=== PATIENT | male | born 1930 | race Caucasian/White ===

== ENCOUNTER 2017-11-04 00:50 | Observation (INO) ==
[2017-11-04] MEDS ORDERED: Nitroglycerin 0.4 MG TAB.SUBL SL ONE (00:58)
--- NOTE | 2017-11-04 01:01 | Emergency Department Note ---
Disposition Clinical Impression: Lung nodule Chest pain Qualifiers: Chest pain type: unspecified Qualified Code(s): R07.9 - Chest pain, unspecified Disposition: Admitted As Inpatient Condition: Fair Referrals: Tiffanie Ascencio CNP [Primary Care Provider] - Forms: ED Satisfaction Letter Time of Disposition: 01:52 Chest Pain HPI - General Chief Complaint: ED Chest Pain Stated Complaint: chest pain Time Seen by Provider: 11/04/17 00:55 Source: patient, EMS Limitations: no limitations Vital Signs Reviewed: Yes Nursing Notes Reviewed: Yes - History of Present Illness HPI Narrative: 87-year-old male history of hypertension CAD status post stents 3, CHF, presents complaining of chest pain shortness of breath that happened prior to arrival, the patient states that he had chest pain at home was an 8 out of 10 and took one nitroglycerin did not change the pain secondary the second nitroglycerin brought the pain down to 5 out of 10, is currently with 5 out of 10 pain denies hemoptysis unilateral leg swelling or history of blood clot. Patient does take aspirin and Plavix. But denies anticoagulation. Denies recent fever chills or productive cough Pt complaint: chest pain Onset (ago): hour(s) Duration: intermittent Pain Location: substernal Severity: moderate Severity scale (1-10): 5 Pain Radiation: none Improves with: nothing Worsens with: nothing Associated symptoms: Reports: nausea. Denies: vomiting, diaphoresis, dyspnea, sense of impending doom - Related Data Home Medications Medication Instructions Recorded Confirmed Aspirin [Lo-Dose Aspirin EC] 81 mg PO DAILY 07/13/17 10/31/17 Atenolol [Tenormin] 6.25 mg PO DAILY 07/13/17 10/31/17 Clopidogrel [Plavix] 75 mg PO DAILY 07/13/17 10/31/17 Multivitamin [Multivitamins] 1 each PO DAILY 07/13/17 10/31/17 Nitroglycerin [Nitrostat] 0.4 mg SL Q5M PRN 07/13/17 10/31/17 Vitamin E (Dl,Tocopheryl Acet) 400 unit PO DAILY 07/13/17 10/31/17 [Vitamin E] Previous Rx's Medication Instructions Recorded Furosemide [Lasix] 20 mg PO DAILY #30 tablet 11/01/17 Allergies Allergy/AdvReac Type Severity Reaction Status Date / Time [id number]-Xcz-Bze Reductase AdvReac Weakness Verified 07/13/17 09:30 Inhibitor [Statins] All systems ED: reviewed and negative except as stated. Review of Systems: As Per HPI Constitutional: Denies: fever Eyes: Denies: eye pain, eye discharge ENT ED: Denies: ear pain Cardiovascular: Reports: as per HPI, chest pain, dyspnea on exertion Respiratory: Reports: as per HPI, dyspnea Gastrointestinal: Denies: abdominal pain, nausea Genitourinary: Denies: urgency Musculoskeletal: Denies: back pain Integumentary: Denies: rash, abrasion Neurological: Denies: headache Psychiatric: Denies: anxiety Endocrine: Denies: fatigue Chest Pain PMH - Past Medical History Medical history: Reports: CHF, coronary artery disease, GERD, hyperlipidemia, hypertension, myocardial infarction Surgical history: Reports: angioplasty/stent, appendectomy Psychiatric history: Reports: no psych history - Social History Smoking Status: Former smoker Alcohol use: Reports: none Drug use: Reports: none Physical Exam Constitutional: Elderly male clutching his chest vital signs are stable sinus bradycardia Neck: normal inspection, neck is supple, no JVD Resp: normal chest inspection, CTA bilaterally, no resp distress, no wheezes/ rales/rhonchi CV: Bradycardia, no murmurs/gallops/rubs, S1 and S2 heard Extremity: +2 bilateral radial and posterial tibial pulses, no pedal edema GI: normal inspection, Soft, NTND, no peritoneal signs, no palpable abdominal aortic aneurysm Back: normal inspection, no tenderness to palpation Neuro: A&O3, no gross motor or sensory deficits bilaterally MSK: normal inspection, bilateral UE and LE with normal ROM Skin: No rashes, skin warm, dry, intact - General Limitations: no limitations General appearance: alert, in no apparent distress Course Course Narrative: 87-year-old male with concerns for ACS given chest pain arrests has gotten another nitroglycerin here still having 5 out of 10 chest pain we will start a nitroglycerin drip CBC BMP basic lab work, he has a EKG that shows bradycardia patient will likely be admission to hospital service - Reevaluation(s) Reevaluation #1: Patient continues to have 3-10 chest pain or nitroglycerin drip, plan is for admission to Hospital hospitalist paged at this time. Time: 01:48 Reevaluation #2: Admitted to Dr Jayna, hospitalist recommends no heparinization at the time of admission. Time: 01:52 Vital Signs Temperature 97.5 F L 11/04/17 00:50 Pulse Rate 59 11/04/17 00:50 Respiratory Rate 22 11/04/17 00:50 Blood Pressure 120/70 11/04/17 00:50 O2 Sat by Pulse Oximetry 100 11/04/17 00:50 Temperature 97.5 F L 11/04/17 00:50 Pulse Rate 51 11/04/17 01:43 Respiratory Rate 18 11/04/17 01:43 Blood Pressure 125/63 11/04/17 01:43 O2 Sat by Pulse Oximetry 95 11/04/17 01:43 Oxygen Delivery Oxygen Delivery Room Air Chest Pain - Differential Diagnosis Likely: stable angina, unstable angina pectoris, atypical chest pain, chest pain - Medical Records Medical records reviewed: Yes I reviewed the patient's medical records. - Lab Data Lab results reviewed: Yes I reviewed the patient's lab results. Result diagrams: 11/04/17 01:13 11/04/17 01:13 Lab Results 11/04/17 11/04/17 11/04/17 Range/Units 01:13 01:13 01:13 WBC 6.2 (4.3-11.1) K/mcL RBC 4.03 L (4.19-5.50) M/mcL Hgb 12.6 L (12.9-16.9) g/dL Hct 38.5 (37.5-50.1) % MCV 95.5 (83.0-100.0) fL MCH 31.3 (28.0-33.3) pg MCHC 32.7 (31.6-35.5) g/dL RDW 11.9 (11.5-14.5) % Plt Count 223 (140-400) K/mcL MPV 9.0 L (9.4-12.4) fL Immature Gran % 0.8 (0-4) % Seg Neutrophils % 59.5 % Lymphocytes % 20.3 % Monocytes % 16.4 % Eosinophils % 2.4 % Basophils % 0.6 % Neutrophils # 3.7 (1.6-8.9) K/mcL Lymphocytes # 1.3 (0.6-4.6) K/mcL Monocytes # 1.0 (0.0-1.3) K/mcL Eosinophils # 0.2 (0.0-0.6) K/mcL Basophils # 0.0 (0.0-0.2) K/mcL PT 10.8 (9.4-12.1) Seconds INR 1.0 APTT 26.8 (26.0-36.0) Seconds Sodium 136 (136-145) mEq/L Potassium 4.5 (3.5-5.1) mEq/L Chloride 103 (98-107) mEq/L Carbon Dioxide 25 (23-29) mEq/L BUN 50 H (8-23) mg/dL Creatinine 1.93 H (0.70-1.30) mg/dL Est GFR ( Amer) 40 L (> 60) Est GFR (Non-Af Amer) 33 L (> 60) BUN/Creatinine Ratio 26 (6-26) Glucose 104 (70-105) mg/dL Calculated Osmolality 296 (280-300) Calcium 9.3 (8.6-10.3) mg/dL Troponin I (< 0.04) ng/mL 11/04/17 Range/Units 01:13 WBC (4.3-11.1) K/mcL RBC (4.19-5.50) M/mcL Hgb (12.9-16.9) g/dL Hct (37.5-50.1) % MCV (83.0-100.0) fL MCH (28.0-33.3) pg MCHC (31.6-35.5) g/dL RDW (11.5-14.5) % Plt Count (140-400) K/mcL MPV (9.4-12.4) fL Immature Gran % (0-4) % Seg Neutrophils % % Lymphocytes % % Monocytes % % Eosinophils % % Basophils % % Neutrophils # (1.6-8.9) K/mcL Lymphocytes # (0.6-4.6) K/mcL Monocytes # (0.0-1.3) K/mcL Eosinophils # (0.0-0.6) K/mcL Basophils # (0.0-0.2) K/mcL PT (9.4-12.1) Seconds INR APTT (26.0-36.0) Seconds Sodium (136-145) mEq/L Potassium (3.5-5.1) mEq/L Chloride (98-107) mEq/L Carbon Dioxide (23-29) mEq/L BUN (8-23) mg/dL Creatinine (0.70-1.30) mg/dL Est GFR ( Amer) (> 60) Est GFR (Non-Af Amer) (> 60) BUN/Creatinine Ratio (6-26) Glucose (70-105) mg/dL Calculated Osmolality (280-300) Calcium (8.6-10.3) mg/dL Troponin I < 0.03 (< 0.04) ng/mL - Radiology Data Radiology results reviewed: Yes I reviewed the patient's radiology results. - EKG Data EKG attestation: Yes I reviewed and interpreted this EKG. EKG shows normal: sinus rhythm Rate: bradycardia (58 bpm QTc 424 bradycardia appears to be sinus no acute ischemic changes) Heart Score - Score History: Highly Suspicious EKG: Non Specific repolarisation Disturbance Age: Greater than 65 Risk Factors: Equal/Greater than 3 risk factor or history of atherosclerotic disease Troponin: Less than normal limit HEART Score Total: 7 Critical Care Time Critical Care Time: Yes Total Critical Care Time: 35 Attestation: Critical care performed: Time is exclusive of separately billable procedures. Time includes: direct patient care, patient reassessment, coordination of patient care, interpretation of data (laboratory data, radiology data, and respiratory data), review of patient's medical records, medical consultation and documentation of patient care. Procedures included in critical care time: Procedures excluded from critical care time: Attestation Statement - Attestation Attestation: I, Prudencio Servin MD, personally evaluated this patient and discussed their management with the resident physician. I reviewed the resident's note and agree with the documented findings, medical decision making, and plan of care. 87-year-old male with known coronary artery disease and coronary artery stents presents to the emergency department with a complaint of pain in the back of his neck and in the upper chest which started about one hour prior to arrival. Shortness of breath with the pain. He took nitroglycerin at home with some improvement. He was given 4 baby aspirin and another nitroglycerin per EMS with improvement. He still has pain. He rated the pain at 8 out of 10 at worst. On arrival here he rates pain a 4 out of 10. Here in the emergency department he received an additional nitroglycerin and was placed on a nitroglycerin infusion. Pain continued to improve down to 3 out of 10. On examination patient is a well-developed well-nourished well-appearing elderly male in no acute distress. He is alert and oriented. There is no cyanosis or diaphoresis. He does appear somewhat anxious and reluctant to move. Chest is nontender to palpation. Breath sounds are clear and equal bilaterally. Heart regular rate and rhythm. Abdomen soft and nontender with normal bowel sounds. EKG shows a supraventricular bradycardia with a ventricular rate of 58. No acute ST segment elevation or depression and no significant change from prior EKG. No acute abnormality on chest x-ray. Labs reviewed. Troponin normal. The hospitalist, Dr. Dorantes, was consulted and accepted admission of the patient.
[2017-11-04 01:21] LABS: Basophils % 0.6 %; Eosinophils # 0.2 K/mcL (0.0-0.6); Eosinophils % 2.4 %; Hematocrit 38.5 % (37.5-50.1); Hemoglobin 12.6 g/dL (12.9-16.9); Immature Granulocytes % 0.8 % (0-4); Lymphocytes # 1.3 K/mcL (0.6-4.6); Lymphocytes % 20.3 %; Mean Corpuscular HGB Conc 32.7 g/dL (31.6-35.5); Mean Corpuscular Hemoglobin 31.3 pg (28.0-33.3); Mean Corpuscular Volume 95.5 fL (83.0-100.0); Monocytes % 16.4 %; Neutrophils # 3.7 K/mcL (1.6-8.9); Platelet Count 223 K/mcL (140-400); Red Blood Count 4.03 M/mcL (4.19-5.50); Red Cell Distribution Width 11.9 % (11.5-14.5); Segmented Neutrophils % 59.5 %
[2017-11-04 01:27] LABS: Prothrombin Time 10.8 Seconds (9.4-12.1)
[2017-11-04 01:30] LABS: Activated Partial Thrombo Time 26.8 Seconds (26.0-36.0)
[2017-11-04] MEDS ORDERED: Nitroglycerin 25 MG/250 ML INFUS..BTL IVC SCH (01:30)
[2017-11-04 01:41] LABS: Calcium 9.3 mg/dL (8.6-10.3); Potassium 4.5 mEq/L (3.5-5.1)
[2017-11-04] MEDS ORDERED: *HR* HYDROcodone/Acet 5/325 mg TABLET PO PRN (03:13)
[2017-11-04] MEDS ORDERED: Naloxone 0.4 MG/ML INJ IVP PRN (03:13)
[2017-11-04] MEDS ORDERED: Nitroglycerin 0.4 MG TAB.SUBL SL PRN (03:17)
--- NOTE | 2017-11-04 03:23 | Internal Med History&Physical ---
Date of Encounter: 11/04/17 Time of Encounter: 02:30 Assessment and Plan (1) DVT prophylaxis Current visit: Yes Status: Acute Heparin subcutaneously (2) CAD (coronary artery disease) Current visit: No Status: Chronic Patient has known CAD S/P stent and PTCA. Last [facility] in Jul 2017, still have non- stented stenosis. Recommend aggressive medical management. Continue aspirin, Plavix, and atenolol. Patient is allergic to statin. Qualifiers: Coronary Disease-Associated Artery/Lesion type: [place] artery [place] vs. transplanted heart: [place] heart Associated angina: with unstable angina Qualified Code(s): I25.110 - Atherosclerotic heart disease of [place] coronary artery with unstable angina pectoris (3) S/P PTCA (percutaneous transluminal coronary angioplasty) Current visit: No Status: Acute (4) Chest pain Current visit: Yes Status: Acute Patient has typical chest pain with left arm radiation. Has history of CAD. Respond to NTG. Need to rule out ACS. - Continue cardiac monitoring. - Continue NTG drip at this point. - Track 3 sets of troponin - Patient has a recent echo 3 days ago. - We will consult cardiology for further management and optimize medications. Qualifiers: Chest pain type: precordial pain Qualified Code(s): R07.2 - Precordial pain (5) Congestive heart failure Current visit: No Status: Acute Appears euvolemic at this point. Continue Lasix by mouth daily Qualifiers: Heart failure type: diastolic Heart failure chronicity: acute Qualified Code(s): I50.31 - Acute diastolic (congestive) heart failure (6) CKD (chronic kidney disease) stage 3, GFR 30-59 ml/min Current visit: No Status: Chronic Creatinine is at around baseline (7) Lung nodule Current visit: Yes Status: Acute Patient was found lung nodule on chest x-ray. We will check CT chest in a.m. Internal Medicine - H&P: HPI Chief complaint: Chest pain Admitted From: Home Plans for Post Hospital Care: Home History of present illness: Mr. Matthews is a 87 year old male with history of CAD S/P stent, CKD, presented to ER for chest pain. Patient said chest pain started 12:15 AM, wake patient up from sleep. Chest pain located on left side chest, ache like, 5 out of 10, radiated to left arm and the left neck. Patient has shortness of breath. He has no nausea or diaphoresis. In emergency room, he was given NTG sublingual followed by NTG drip. His chest pain get down to 2 out of 10 after treatment. Patient was admitted to rule out ACS. Past Med Surg Social Fam HX - Past Medical History Medical history: CHF, coronary artery disease, GERD, hyperlipidemia, hypertension, myocardial infarction Psychiatric history: no psych history - Past Surgical History Surgical History: angioplasty/stent, appendectomy - Social History Smoking Status: Former smoker Smokeless Tobacco Status: No Alcohol use: none Drug use: none - Family History Mother History Unknown: Yes Living Status: Internal Medicine - H&P: Meds Aspirin [Lo-Dose Aspirin EC] 81 mg PO DAILY 07/13/17 [History] Atenolol [Tenormin] 6.25 mg PO DAILY 07/13/17 [History] Clopidogrel [Plavix] 75 mg PO DAILY 07/13/17 [History] Multivitamin [Multivitamins] 1 each PO DAILY 07/13/17 [History] Nitroglycerin [Nitrostat] 0.4 mg SL Q5M PRN 07/13/17 [History] Vitamin E (Dl,Tocopheryl Acet) [Vitamin E] 400 unit PO DAILY 07/13/17 [History] Furosemide [Lasix] 20 mg PO DAILY #30 tablet 11/01/17 [Rx] 3 Allergy/AdvReac Type Severity Reaction Status Date / Time Kvbyhwm-Ame-Vom Reductase AdvReac Weakness Verified 07/13/17 09:30 Inhibitor [Statins] All Systems PM: A 10-system review of systems was performed and is negative for pertinent findings except as documented above in the HPI. - Constitutional Vitals: Temp Pulse Resp BP Pulse Ox 97.7 F 52 17 123/62 98 11/04/17 03:00 11/04/17 03:00 11/04/17 03:00 11/04/17 03:00 11/04/17 03:00 General appearance: Present: A&O X 3, no acute distress, answers questions appropriately - Head Head exam: Present: atraumatic, normocephalic - Eye Eye exam: Present: PERRL, conjuntiva pink, sclera anicteric Pupils: Present: PERRL - Neck Neck exam general surgery: Present: supple, trachea midline. Absent: lymphadenopathy - Respiratory Respiratory exam: Present: CTAB. Absent: accessory muscle use, rales, rhonchi, wheezes - Cardiovascular Cardiovascular exam: Present: RRR, +S1, +S2. Absent: diastolic murmur, gallop, rubs, systolic murmur - GI/Abdominal GI/Abdominal exam: Present: normal bowel sounds, soft, no peritoneal signs. Absent: distended, tenderness - Extremities Exam Extremities exam: Present: warm, radial pulses palpable and symmetrical. Absent : calf tenderness, cyanotic, pedal edema - Neurological Exam Neurological exam: Present: CN II-XII intact, oriented X3, no focal deficits. Absent: pronater drift, facial droop, speech deficit - Skin Skin exam: Present: dry, intact Internal Med - H&P Results - Labs CBC & Chem 7: 11/04/17 01:13 11/04/17 01:13 - EKG Data -: EKG Interpreted by Myself (Supraventricular rhythm) Rate: bradycardia - EKG Data Prior EKG available for review: yes When compared to previous EKG: there is no significant change Interpretation IM: normal EKG
[2017-11-04 04:35] LABS: Eosinophils % 1.8 %; Hematocrit 35.7 % (37.5-50.1); Hemoglobin 11.7 g/dL (12.9-16.9); Lymphocytes % 14.2 %; Mean Corpuscular HGB Conc 32.8 g/dL (31.6-35.5); Mean Corpuscular Hemoglobin 31.5 pg (28.0-33.3); Monocytes % 15.2 %; Platelet Count 198 K/mcL (140-400); Red Blood Count 3.72 M/mcL (4.19-5.50); Red Cell Distribution Width 12.1 % (11.5-14.5); Segmented Neutrophils % 67.1 %
[2017-11-04 04:36] LABS: Basophils % 0.7 %; Eosinophils # 0.1 K/mcL (0.0-0.6); Lymphocytes # 0.9 K/mcL (0.6-4.6); Monocytes # 0.9 K/mcL (0.0-1.3)
[2017-11-04 04:48] LABS: Potassium 4.4 mEq/L (3.5-5.1)
[2017-11-04] MEDS: *HR* Heparin 5,000 UNIT/ML VIAL SQ SCH ×2 (06:00→20:04)
[2017-11-04] MEDS: Acetaminophen 325 MG TABLET PO PRN ×2 (06:05→22:47)
[2017-11-04] MEDS ORDERED: Furosemide 20 MG TABLET PO SCH (09:00)
--- NOTE | 2017-11-04 09:44 | Internal Med Progress Note ---
Date of Encounter: 11/04/17 Time of Encounter: 09:44 - Assessment and plan (1) Chest pain Current Visit: Yes Status: Acute Assessment and plan: Patient has typical chest pain with left arm radiation. Has history of CAD. Respond to NTG. Need to rule out ACS. - Troponin negative x3 - Continue cardiac monitoring. - Continue NTG drip at this point. - Patient has a recent echo 3 days ago. - Consult cardiology for further management and optimize medications. Qualifiers: Chest pain type: precordial pain Qualified Code(s): R07.2 - Precordial pain (2) Lung nodule Current Visit: Yes Status: Acute Assessment and plan: CT chest pending. (3) Bradycardia Current Visit: No Status: Acute Assessment and plan: Currently on tele monitoring he is running 50s. He currently does not have any complaints of pain. Will monitor and hold atenolol (4) Congestive heart failure Current Visit: No Status: Acute Assessment and plan: Appears euvolemic at this point. Continue Lasix by mouth daily Qualifiers: Heart failure type: diastolic Heart failure chronicity: acute Qualified Code(s): I50.31 - Acute diastolic (congestive) heart failure (5) S/P PTCA (percutaneous transluminal coronary angioplasty) Current Visit: No Status: Acute (6) CAD (coronary artery disease) Current Visit: No Status: Chronic Assessment and plan: Patient has known CAD S/P stent and PTCA. Last C in Jul 2017, still have non- stented stenosis. Recommend aggressive medical management. Continue aspirin, Plavix, and atenolol. Patient is allergic to statin. Qualifiers: Coronary Disease-Associated Artery/Lesion type: [place] artery [place] vs. transplanted heart: [place] heart Associated angina: with unspecified angina Qualified Code(s): I25.119 - Atherosclerotic heart disease of [place] coronary artery with unspecified angina pectoris (7) CKD (chronic kidney disease) stage 3, GFR 30-59 ml/min Current Visit: No Status: Chronic Assessment and plan: GFR 34 - at baseline (8) DVT prophylaxis Current Visit: Yes Status: Acute Assessment and plan: Heparin 5,000 units SQ BID - Subjective Interval history: Patient states left arm/chest pain improved with nitro drip, but now having headache side effects. He denies shortness of breath, nausea/vomiting, fevers/ chills, palpitations - Constitutional Vitals: Temp Pulse Resp BP Pulse Ox 98 F 50 16 143/63 100 11/04/17 08:34 11/04/17 08:34 11/04/17 08:34 11/04/17 08:34 11/04/17 08:34 General appearance: Present: A&O X 3, no acute distress, answers questions appropriately Exam: - Head Head exam: Present: atraumatic, normocephalic - Eye Eye exam: Present: PERRL, conjuntiva pink, sclera anicteric Pupils: Present: PERRL - Neck Neck exam general surgery: Present: supple, trachea midline. Absent: lymphadenopathy - Respiratory Respiratory exam: Present: CTAB. Absent: accessory muscle use, rales, rhonchi, wheezes - Cardiovascular Cardiovascular exam: Present: RRR, +S1, +S2. Absent: diastolic murmur, gallop, rubs, systolic murmur - GI/Abdominal GI/Abdominal exam: Present: normal bowel sounds, soft, no peritoneal signs. Absent: distended, tenderness - Extremities Exam Extremities exam: Present: warm, radial pulses palpable and symmetrical. Absent : calf tenderness, cyanotic, pedal edema - Neurological Exam Neurological exam: Present: CN II-XII intact, oriented X3, no focal deficits. Absent: pronater drift, facial droop, speech deficit - Skin Skin exam: Present: dry, intact Internal Medicine: Result - Labs CBC & Chem 7: 11/04/17 03:51 11/04/17 03:51 Labs: Short CBC 11/04/17 Range/Units 03:51 WBC 6.0 (4.3-11.1) K/mcL Hgb 11.7 L (12.9-16.9) g/dL Hct 35.7 L (37.5-50.1) % Plt Count 198 (140-400) K/mcL Neutrophils # 4.0 (1.6-8.9) K/mcL BMP 11/04/17 03:51 Sodium 136 Potassium 4.4 Chloride 103 Carbon Dioxide 25 BUN 50 H Creatinine 1.87 H Glucose 100 Calcium 9.0 Cardiac Enzymes 11/04/17 Range/Units 03:51 Troponin I < 0.03 (< 0.04) ng/mL - ABG Interpretation ABG results: PT/INR, D-dimer PT 10.8 Seconds (9.4-12.1) 11/04/17 01:13 - Impressions Impressions Chest CT 11/04/17 09:00 IMPRESSION: 1. No nodule was identified to correlate with recent chest x-ray findings. There is an incidental 2 mm noncalcified nodule in the right upper lobe which is identified. This can be followed per Fleischner society guidelines. 2. Subpleural reticulations are noted in the lung bases bilaterally and may reflect early fibrotic changes. 3. No other acute cardiopulmonary findings. RECOMMENDATIONS: Fleischner Society guidelines for follow-up and management of incidentally detected pulmonary nodules: Single Solid Nodule: Nodule size less than 6 mm In a low-risk patient, no routine follow-up. In a high-risk patient, optional CT at 12 months. Nodule size equals 6-8 mm In a low-risk patient, CT at 6-12 months, then consider CT at 18-24 months. In a high-risk patient, CT at 6-12 months, then CT at 18-24 months. Nodule size greater than 8 mm In a low-risk patient, consider CT, PET/CT, or tissue sampling at 3 months. In a high-risk patient, consider CT, PET/CT, or tissue sampling at 3 months. - Low risk patients include individuals with minimal or absent history of smoking and other known risk factors. - High risk patients include individuals with a history or smoking or known risk factors. Radiology 2017 http://pubs.rsna.org/doi/full/[email or web address] D/ / 11/04/2017 09:15:06 Zara Thao MD / peggy Interpreting Provider: Zara Thao MD Consult Discharge Plan - Plan Referrals: Tiffanie Ascencio, NISHANT [Primary Care Provider] -
[2017-11-04] MEDS: Aspirin Enteric Coated 81 MG Tablet PO SCH (12:27)
[2017-11-04] MEDS ORDERED: Nitroglycerin 0.2 MG PATCH.TD24 TD SCH (13:01)
[2017-11-04] MEDS: Multivit/Ca/Min/Fe/FA 1 TAB TABLET PO SCH (13:45)
[2017-11-04] MEDS: Furosemide 40 MG TABLET PO SCH (13:53)
--- NOTE | 2017-11-04 14:57 | Cardiology Consult Note ---
<Chrissy Iyer - Last Filed: 11/04/17 15:04> Date of Encounter: 11/04/17 Time of Encounter: 14:00 Assessment and Plan (1) CAD (coronary artery disease) Current Visit: No Status: Chronic Per cardiology: -Known CAD. -Last [facility] 07/2017 with 30% left main, 40% proximal LAD, 90% ostial/proximal circumflex, 40% ramus, 30% proximal RCA, 99% instent restenosis mid RCA with balloon angioplasty with final stenosis of 0%, 30% distal RCA, 99% RPL small vessel. -On asa, plavix, imdur, was on beta mariely in outpateint setting. NOw being held due to bradycardai. Not on statin due to allergy. -Admtted left arm and left neck pain, Relieved with nitro drip. -TTE 10/2017 with LVEF preserved, no segmental wall motion abnormalities. -ECG with no acute ischemic changes. -Troponins negative x3. -Denies current pain. -On asa, plavix, BB. NOt on statin due to allergy. -With remaining circumflex lesion, plan for stress in am. -NPO after midnight. -Of note, will need nitro patch discontinued at 0001 11/05/17 for stress in am. Qualifiers: Coronary Disease-Associated Artery/Lesion type: [place] artery [place] vs. transplanted heart: [place] heart Associated angina: with unspecified angina Qualified Code(s): I25.119 - Atherosclerotic heart disease of [place] coronary artery with unspecified angina pectoris Discussion w patient/family: The assessment and plan as outlined above was discussed with the patient and/or family members who expressed understanding and agreement. All questions were answered. Thank you for involving us in the care of your patient. Please call with any questions. Discussed and reviewed with . History of Present Illness Consult date: 11/04/17 Requesting physician: Ariella Chua Consult reason: chest pain Chief complaint: left arm and left neck pain History of present illness: Mr. Matthews is a 87 year old male with a relevant past medical history of CAD s/p PCI, HTN, GERD, CHF. Patient presented to [facility] with complaints left neck and left arm pain. Patient reports pain woke up him from sleeping. Denies aggravating factors. Patient reports pain was relieved after nitro drip in ER. Denies current chest pain. Denies shortness of breath. Past Med Surg Social Fam HX - Past Medical History Attestation: Yes The following information was validated with the patient. Source: patient, old records reviewed Medical history: CHF, coronary artery disease, GERD, hyperlipidemia, hypertension, myocardial infarction Psychiatric history: no psych history - Past Surgical History Surgical History: angioplasty/stent, appendectomy - Social History Smoking Status: Former smoker Smokeless Tobacco Status: No Alcohol use: none Drug use: none - Family History Mother History Unknown: Yes Living Status: Medications and Allergies Aspirin [Lo-Dose Aspirin EC] 81 mg PO DAILY 07/13/17 [History] Atenolol [Tenormin] 6.25 mg PO DAILY 07/13/17 [History] Clopidogrel [Plavix] 75 mg PO DAILY 07/13/17 [History] Multivitamin [Multivitamins] 1 each PO DAILY 07/13/17 [History] Nitroglycerin [Nitrostat] 0.4 mg SL Q5M PRN 07/13/17 [History] Vitamin E (Dl,Tocopheryl Acet) [Vitamin E] 400 unit PO DAILY 07/13/17 [History] Furosemide [Lasix] 20 mg PO DAILY #30 tablet 11/01/17 [Rx] 3 Allergy/AdvReac Type Severity Reaction Status Date / Time [id number] Reductase AdvReac Weakness Verified 07/13/17 09:30 Inhibitor [Statins] All Systems Review: The remainder of the systems were reviewed and are negative - Cardiovascular Cardiovascular: as per HPI, radiating jaw, neck or arm pain Physical Examination Vital Signs, Last 4 Hours Temp Pulse Resp BP Pulse Ox 11/04/17 12:37 134/67 11/04/17 11:05 97.9 F 49 16 135/62 98 11/04/17 11:00 150/67 General: Conversant, No Apparent Distress HEENT: Atraumatic, Normocephaly, Mucus Membranes Moist Neck: No JVD, Normal carotid pulses Cardiac: Reg Rate and Rhythm, Normal S1 and S2, No Murmur Lungs: Normal Breath Sounds, No Wheeze, Rales, Rhonchi Neuro: Alert and responsive, No focal deficits noted Abdomen: Soft, Non-Tender Skin: No rashes noted on visualized skin Musculoskeletal: No Chest Wall Tenderness Extremities: No Clubbing, No Cyanosis, No Edema, Normal Pulses Results 11/04/17 03:51 11/04/17 03:51 Lab Results Impressions Chest X-Ray 11/04/17 00:58 IMPRESSION: No evidence of acute cardiopulmonary disease. Questionable nodule in the right lung. Consider further evaluation with CT imaging. D/ / Mark Gustafson MD / Mark Gustafson MD Interpreting Provider: Mark Gustafson MD Chest CT 11/04/17 09:00 IMPRESSION: 1. No nodule was identified to correlate with recent chest x-ray findings. There is an incidental 2 mm noncalcified nodule in the right upper lobe which is identified. This can be followed per Fleischner society guidelines. 2. Subpleural reticulations are noted in the lung bases bilaterally and may reflect early fibrotic changes. 3. No other acute cardiopulmonary findings. RECOMMENDATIONS: Fleischner Society guidelines for follow-up and management of incidentally detected pulmonary nodules: Single Solid Nodule: Nodule size less than 6 mm In a low-risk patient, no routine follow-up. In a high-risk patient, optional CT at 12 months. Nodule size equals 6-8 mm In a low-risk patient, CT at 6-12 months, then consider CT at 18-24 months. In a high-risk patient, CT at 6-12 months, then CT at 18-24 months. Nodule size greater than 8 mm In a low-risk patient, consider CT, PET/CT, or tissue sampling at 3 months. In a high-risk patient, consider CT, PET/CT, or tissue sampling at 3 months. - Low risk patients include individuals with minimal or absent history of smoking and other known risk factors. - High risk patients include individuals with a history or smoking or known risk factors. Radiology 2017 http://pubs.rsna.org/doi/full/10.1148/radiol.6324204294 D/ / 11/04/2017 09:15:06 Zara Thao MD / peggy Interpreting Provider: Zara Thao MD Active Medications Acetaminophen (Tylenol) 650 mg PO Q6HR PRN PRN Reason: Mild Pain/Fever Stop: 05/06/18 03:14 Last Admin: 11/04/17 06:05 Dose: 650 mg Hydrocodone Bitart/Acetaminophen ([place] 5-325 Mg) 1 tab PO Q6HR PRN PRN Reason: Moderate Pain Stop: 05/06/18 03:14 Last Admin: 11/04/17 10:10 Dose: 1 tab Aspirin (Aspirin Ec) 81 mg PO DAILY MARIAM Stop: 05/06/18 09:01 Last Admin: 11/04/17 12:27 Dose: 81 mg Atenolol (Tenormin) 6.25 mg PO DAILY MARIAM Stop: 05/06/18 09:01 Last Admin: 11/04/17 12:28 Dose: Not Given Clopidogrel Bisulfate (Plavix) 75 mg PO DAILY MARIAM Stop: 05/06/18 09:01 Last Admin: 11/04/17 12:27 Dose: 75 mg Furosemide (Lasix) 20 mg PO DAILY MARIAM Stop: 05/06/18 09:01 Last Admin: 11/04/17 13:53 Dose: 20 mg Heparin Sodium (Porcine) (Heparin) 5,000 unit SQ Q12HCO MARIAM Stop: 05/06/18 06:01 Last Admin: 11/04/17 06:00 Dose: 5,000 unit Hydralazine HCl (Hydralazine) 10 mg IVP Q6HR PRN PRN Reason: SEE COMMENTS Stop: 05/06/18 12:42 Nitroglycerin (Nitroglycerin Premix 25 Mg/250 Ml) 25 mg in 250 mls @ 3 mls/hr IVC .Q24H MARIAM; 5 MCG/MIN PRN Reason: Protocol Stop: 05/06/18 01:31 Last Titration: 11/04/17 11:24 Dose: 0 mcg/min, 0 mls/hr Multivitamins/Calcium (Thera M Plus) 1 tab PO DAILY MARIAM Stop: 05/06/18 09:01 Last Admin: 11/04/17 13:45 Dose: 1 tab Naloxone HCl (Narcan) 0.4 mg IVP Q2MIN PRN PRN Reason: SEE COMMENTS Stop: 05/06/18 03:14 Nitroglycerin (Nitroglycerin) 0.4 mg SL Q5M PRN PRN Reason: Chest Pain Stop: 05/06/18 03:18 Nitroglycerin (Nitroglycerin) 0.2 mg TD 0730 [facility] Stop: 05/06/18 13:02 Last Admin: 11/04/17 13:44 Dose: 0.2 mg Vitamin E (Vitamin E) 400 unit PO DAILY MARIAM Stop: 05/06/18 09:01 Last Admin: 11/04/17 13:44 Dose: 400 unit Laboratory Tests 11/04/17 11/04/17 11/04/17 01:13 01:13 01:13 Hgb 12.6 L Creatinine 1.93 H Troponin I < 0.03 11/04/17 11/04/17 03:51 10:49 Hgb Creatinine Troponin I < 0.03 < 0.03 - Imaging and Cardiology Chest Xray: report reviewed Echo: report reviewed Cardiac cath: report reviewed - EKG Interpretation EKG results cardiology: personally reviewed (ECG with sinus bradycardia.), other (Telemetry with SB.) Consult Discharge Plan - Plan Referrals: Sonu,Tiffanie Green [employer] [Primary Care Provider] - <Shavon Connelly - Last Filed: 11/04/17 15:33> Date of Encounter: 11/04/17 - Attending Attestation 87 YOM presents with chest pain similiar to when he had his previous PTCA of the mid RCA 07/2017. ECHO is 55% with negative trops. Will proceed with a NST for further risk stratification. Assessment and Plan Discussion w patient/family: The assessment and plan as outlined above was discussed with the patient and/or family members who expressed understanding and agreement. All questions were answered. Thank you for involving us in the care of your patient. Please call with any questions. History of Present Illness History of present illness: Mr. Matthews is a 87 year old male All Systems Review: The remainder of the systems were reviewed and are negative Physical Examination Vital Signs, Last 4 Hours BP 11/04/17 12:37 134/67 Results 11/04/17 03:51 11/04/17 03:51 Lab Results 11/04/17 11/04/17 11/04/17 03:51 03:51 03:51 WBC 6.0 Hgb 11.7 L Hct 35.7 L Plt Count 198 Sodium 136 Potassium 4.4 Chloride 103 Carbon Dioxide 25 BUN 50 H Creatinine 1.87 H Glucose 100 Calcium 9.0 Troponin I < 0.03 11/04/17 10:49 WBC Hgb Hct Plt Count Sodium Potassium Chloride Carbon Dioxide BUN Creatinine Glucose Calcium Troponin I < 0.03
[2017-11-05] MEDS: *HR* Heparin 5,000 UNIT/ML VIAL SQ SCH ×2 (06:03→18:18)
[2017-11-05] MEDS ORDERED: Regadenoson 0.4 MG/5 ML SYRINGE IVP ONE (06:21)
[2017-11-05 10:33] LABS: Hematocrit 40.4 % (37.5-50.1); Hemoglobin 13.2 g/dL (12.9-16.9); Mean Corpuscular HGB Conc 32.7 g/dL (31.6-35.5); Mean Corpuscular Hemoglobin 31.4 pg (28.0-33.3); Platelet Count 210 K/mcL (140-400); Red Blood Count 4.21 M/mcL (4.19-5.50); Red Cell Distribution Width 12.1 % (11.5-14.5)
[2017-11-05] MEDS: Aspirin Enteric Coated 81 MG Tablet PO SCH (10:34)
[2017-11-05] MEDS: Furosemide 40 MG TABLET PO SCH (10:34)
[2017-11-05] MEDS: Multivit/Ca/Min/Fe/FA 1 TAB TABLET PO SCH (10:34)
[2017-11-05 10:58] LABS: Calcium 9.4 mg/dL (8.6-10.3); Potassium 4.7 mEq/L (3.5-5.1)
--- NOTE | 2017-11-05 12:20 | Event Note ---
Date of Encounter: 11/05/17 Time of Encounter: 12:16 - Cardiology Event Note Stress test this am abnormal. Discussed and reviewed with patient and family. Recommend LHC. Patient and family requesting to speak with , security supervisor. spoke with pateint and family. RIsks versus benefits of LHC explained to patient and family. All questions answered. Patient and family agreeable to proceed with LHC. Creatinine 1.74, about patient 's baseline, states ok to proceed with LHC. Further recommendations pending LHC.
[2017-11-05] MEDS ORDERED: ISOVUE-370 200 ML INFUS..BTL IV ONE (12:50)
[2017-11-05] MEDS ORDERED: *HR* Heparin 10,000 UNIT/10 ML VIAL ONE (12:50)
[2017-11-05] MEDS ORDERED: 0.9 % Sodium Chloride 1,000 ML ONE ×2 (12:50→13:38)
[2017-11-05] MEDS ORDERED: Heparin 1,000 UNITS/500 mL 500 ML ONE (12:50)
[2017-11-05] MEDS ORDERED: *HR* Midazolam HCl 2 MG/2 ML VIAL ONE (13:42)
[2017-11-05] MEDS ORDERED: Nitroglycerin 1,000 MCG/10 ML VIAL IV ONE (13:43)
--- NOTE | 2017-11-05 13:52 | Pre-Sedation Evaluation ---
Pre-sedation evaluation - Pre-sedation checklist Date of procedure: 11/05/17 Procedure: heart catherterization Recent Vitals: Last Vital Signs Temp 97.9 F 11/05/17 11:27 Pulse 98 11/05/17 11:27 Resp 18 11/05/17 11:27 BP 136/65 11/05/17 11:27 Pulse Ox 99 11/05/17 11:27 H&P (including ROS) documented in medical record: Yes Previous reaction to sedatives/anesthetics: No Dietary Status: NPO after Midnight Airway Assessment: Patient can open mouth completely, TMJ function normal Dentition: dentures removed Possible difficult airway: No ASA Classification *see protocol: CLASS III-Severe systemic disease Plan of Care: Pt appropriate candidate for procedure/moderate/conscious sedation , Risks/benefits of procedure/sedation discussed w/ patient/family, If not NPO; Risk of intake outweiged by necessity to perform procedure
[2017-11-05] MEDS ORDERED: *HR* Bivalirudin 250 MG VIAL IVC ONE (15:01)
--- NOTE | 2017-11-05 16:25 | Invasive Diagnostic Lab Proc ---
Name: Foster Matthews Date of Study: 11/05/2017 Date: 1930 Ht: 68.1in Medical Record#: [id number] Age: 87 Wt: 152.12lb Gender: Male BSA: 1.82 Order #: [id number] BMI: 23.05 Physicians Procedure Physician: J Luis Waldron DO Referring MD: Referring MD: Staff Name Position Time In Homer Chavez RT (R) Scrub 01:33 PM Petra Orlando RT (R) Monitor 01:33 PM Ismael Alva RN Hydropulper 01:33 PM Indications Indication Abnormal Test - Stress Procedures Performed Procedure L HRT ARTERY/VENTRICLE ANGIO PRQ CARD BM STENT W/ANGIO 1 VSL Pre-Procedure Checklist Pt not NPO for procedure and MD aware. Blood Pressure: 136/65 Plan of Care Patient will tolerate the procedure without complications. Adequate level of comfort will be maintained. Hemodynamics will remain stable Patient will recover from procedure without complications. Respiratory function will be maintained. Cardiac rhythm will remain stable. Patient temperature will be maintained. Patient and/or family have verbalized understanding of the procedure. Patient Education Chief Complaint/Reason for Test: Cardiac Cath Developmental Category: Geriatric (65+ years) Developmentally Appropriate for Age: Yes Learning Barriers: None Education Needs: Procedure Education Method: Verbal Information Taught: Cardiac Cath Educational Evaluation: Able to repeat information Intravenous Access Time IV Size Location DC'd Fluid/Drip Rate Units RN 12:46 PM 20g 1 /" Patent On Arrival Rt Antecubital Allergies Siwhply-Iwr-Ruo Reductase Inhibitor Vital Signs Time BP (mmHg) HR (bpm) O2 Sat. RR (bpm) LOC 12:46 PM 136 / 65 98 99 % 18 5 = Fully awake and oriented or at pre-proc level 01:53 PM / % 4 = Oriented but drowsy 03:13 PM 173 / 75 61 99 % 16 5 = Fully awake and oriented or at pre-proc level 01:46 PM 161 / 74 60 98 % 20 01:51 PM 143 / 73 61 100 % 20 01:56 PM 122 / 70 61 100 % 18 02:00 PM 135 / 75 62 100 % 16 02:06 PM 140 / 67 61 100 % 17 02:11 PM 148 / 71 64 100 % 21 02:16 PM 140 / 73 63 100 % 18 02:21 PM 132 / 67 56 100 % 18 02:27 PM 163 / 72 56 100 % 16 02:31 PM 161 / 79 59 100 % 13 02:36 PM 159 / 79 60 99 % 23 02:41 PM 149 / 77 60 98 % 18 02:46 PM 150 / 73 60 100 % 11 02:51 PM 162 / 79 61 100 % 16 03:21 PM 145 / 77 59 99 % 14 03:30 PM 149 / 76 62 92 % 14 5 = Fully awake and oriented or at pre-proc level 03:44 PM 143 / 70 61 97 % 16 5 = Fully awake and oriented or at pre-proc level 04:00 PM 145 / 77 60 98 % 16 5 = Fully awake and oriented or at pre-proc level Procedural Medications Time Medication Dose Units Method Given By 01:47 PM Oxygen 2 L/min nasal cannula Ismael Alva RN 01:47 PM Versed 1 mg Intravenous Ismael Alva RN 01:59 PM Lidocaine 2% 10 ml Subcutaneous J Luis Waldron DO 02:11 PM Angiomax 0.75mg/kg bolus: 10.5 ml Intravenous Ismael Alva RN 02:11 PM Angiomax 1.75mg/kg/hr: 24.5 ml/hr Intravenous Ismael Alva RN 02:54 PM Angiomax 1.75mg/kg/hr: ml Dc'd Ismael Alva RN ASA Classification: CLASS II- Mild systemic disease (i.e. well-controlled diabetes, hypertension, asthma, cigarette smoking) Seth Score Preprocedure Postprocedure Activity 2- Moves 4 extremities sustained head lift Activity Circulation 2- SBP +/= 20 points of pre-anesthetic level Circulation Consciousness 2- Awake and alert oriented x 3 Consciousness O2 Saturation 2- Able to maintain O2 satruation of 92% on room air O2 Saturation Respiratory 2- Able to deep breathe and cough well Respiratory Total Score 10 Total Score Contrast Agent: Isovue Diagnostic Contrast: 100 ml Total Contrast: 100 ml Fluoro Dose: 1120 mGy Procedure Log Time Note Enter By 12:57 PM CathStat 01:25 PM Pt to the holding area, family at bedside. Pt comfortable, no complaints of pain. dspellman 01:25 PM Patient charges- Angio tray pack, Navilyst 3mm J, Pulse Oximetry and ACIST tubing and transducer dspellman 01:25 PM IV Supplies used: J loop Angio Cath. dspellman 01:33 PM Homer Chavez RT (R) Position: Scrub Time in: ::33 PM Petra Orlando RT (R) Position: Monitor Time in: ::33 PM Ismael Alva RN Position: Hydropulper Time in: 13:33 01:45 PM Vitals capture started with the following parameters, Patient=Adult, Interval=5 min, Initial Exutqwph=073 mmHg, Deflation Rate=3 mmHg, Cuff placed on Right Arm :46 PM Case Start :46 PM Physician arrived 13::46 PM Meet and greet completed :46 PM Sign in performed according to hospital policy. :46 PM Procedure start 13:46 PM Pressure channel 2 zeroed. :46 PM HR=60 bpm, JTRC=068/74 mmhg, SpO2=98.0 %, Resp=20 B/min, Comment=NSR :47 PM Hair removed from procedure site in procedure lab using clippers. Bilateral groin prepped with Chloraprep by Petra Orlando RT (R), then patient was draped. Skin intact. :47 PM Time: 13:47 Oxygen on at 2 L/min per nasal cannula by Ismael Alva RN :47 PM Time: 13:47 Versed 1 mg Intravenous Given by Ismael Alva RN :51 PM HR=61 bpm, OGWJ=147/73 mmhg, XpW6=936.0 %, Resp=20 B/min, Comment=NSR :51 PM ASA Class CLASS II- Mild systemic disease (i.e. well-controlled diabetes, hypertension, asthma, cigarette smoking) :53 PM Time: 13:53 Patient comfortable and pain free: Yes :53 PM Time: 13:53LOC: 4 = Oriented but drowsy :54 PM Clinical Presentation: Unstable angina dsp:56 PM HR=61 bpm, OYSK=558/70 mmhg, TtG2=324.0 %, Resp=18 B/min, Comment=NSR :59 PM Time out performed according to hospital policy dspellman 01:59 PM Time: 13:59 10 ml Lidocaine 2% to right groin Subcutaneous Given by J Luis Waldron DO dspell:59 PM Unsuccessful access attempt # 1 into the right Femoral artery. Manual pressure applied to achieve hemostasis.. dspell 02:00 PM Micro-Introducer Kit utilized for sheath placement dspell 02:00 PM HR=62 bpm, YSWU=592/75 mmhg, AfO0=076.0 %, Resp=16 B/min, Comment=NSR 02:04 PM Access obtained by percutaneous puncture. 6Fr 10cm Terumo [place] sheath placed in right Femoral artery. [id number] ell:04 PM 0.035 180cm Amplatz Super Stiff wire [id number] ell 02:05 PM 6Fr FR 4 catheter inserted over the wire [facility] :05 PM Catheter selectively placed in left ventricle dspell 02:06 PM HR=61 bpm, SDKV=781/67 mmhg, FbM5=364.0 %, Resp=17 B/min, Comment=NSR 02:06 PM Recorded Pressure: LV, HR=63, Condition=Condition 1 (Left Ventricle) LV 143/0/3 02:06 PM Recorded Pressure: LV, Ao, HR=72, Condition=Condition 1 (Left Ventricle) LV 152/10/4, (Aorta) Ao 150/40/90 02:07 PM Bolus angiogram of left Ventricle complete: 12 ml/sec for a total of 12 mls dspell 02:07 PM RCA angiography performed in multiple views. dspell 02:07 PM Catheter removed dspell 02:07 PM 5Fr FL 4 catheter inserted over the wire [facility] dspell 02:08 PM LCA angiography performed in multiple views. dspell 02:08 PM Recorded Pressure: Ao, HR=62, Condition=Condition 1 (Aorta) Ao 137/54/83 02:09 PM Catheter removed dspell 02:10 PM Lesion found in Mid RCA. Pre Stenosis: 90 Pre LIZZETTE Flow: 3: Complete and Brisk Flow/Perfusion dspell 02:10 PM Right Coronary, Right Posterior Descending Arteries with Right Posterolateral and Acute Marginal branches with 90 % stenosis. If graft is supplying this area, 0 % stenosis dspell 02:10 PM PCI Status Urgent dspellman 02:10 PM PCI Indication: PCI for high risk Non-STEMI or unstable angina dspellman 02:10 PM PCI lesion in Mid RCA. dspell 02:10 PM 6Fr JR 4 Cordis guide catheter was used to cannulate the PCI vessel successfully. reused? No dspellman 02:11 PM HR=64 bpm, FNGZ=977/71 mmhg, HiT4=817.0 %, Resp=21 B/min, Comment=NSR 02:11 PM Time: 14:11 Angiomax 0.75mg/kg bolus: 10.5 ml Intravenous Given by Ismael Alva RN Blanco pump dspell 02:11 PM Recorded Pressure: Ao, HR=67, Condition=Condition 1 (Aorta) Ao 132/50/83 02:12 PM Time: 14:11 Angiomax 1.75mg/kg/hr: 24.5 ml/hr Intravenous Given by Ismael Alva RN Blanco pump dspell 02:13 PM Inflation device was opened. dspell 02:13 PM .014 ChoICE PT Extra Support 300cm guide wire across target lesion- successful. reused? No dspellman 02:13 PM 3.0 mm x 15mm NC Trek Rx balloon across target lesion-un successful. reused? No dspellman 02:16 PM HR=63 bpm, PGIU=063/73 mmhg, AxC6=990.0 %, Resp=18 B/min, Comment=NSR 02:16 PM Balloon catheter removed intact. dspell 02:17 PM 2.0 mm x 15 mm Emerge Monorail balloon across target lesion- successful. reused? No dspellman 02:18 PM Balloon inflated @ 14 brenda for 15 seconds dspellman 02:19 PM Balloon inflated @ 14 brenda for 17 seconds dspellman 02:19 PM Balloon inflated @ 14 brenda for 16 seconds dspellman 02:20 PM Balloon inflated @ 14 brenda for 15 seconds dspellman 02:20 PM Balloon inflated @ 14 brenda for 15 seconds dspellman 02:21 PM HR=56 bpm, NOAZ=093/67 mmhg, TiM0=023 %, Resp=18 B/min 02:21 PM Balloon inflated @ 14 brenda for 16 seconds dspellman 02:21 PM Balloon catheter removed intact. dspellman 02:21 PM 3.0 x 15 NC Trek balloon inserted over the wire. dspellman 02:24 PM Balloon inflated @ 16 brenda for 15 seconds dspellman 02:24 PM Balloon inflated @ 16 brenda for 13 seconds dspellman 02:25 PM Balloon inflated @ 16 brenda for 16 seconds dspellman 02:25 PM Balloon inflated @ 16 brenda for 15 seconds dspellman 02:26 PM Balloon inflated @ 16 brenda for 15 seconds dspellman 02:26 PM Recorded Pressure: Ao, HR=56, Condition=Condition 1 (Aorta) Ao 162/63/99 02:26 PM Balloon inflated @ 18 brenda for 16 seconds dspellman 02:27 PM Balloon catheter removed intact. dspellman 02:27 PM HR=56 bpm, TDEW=321/72 mmhg, ZdO1=589.0 %, Resp=16 B/min, Comment=NSR 02:28 PM 3.5 mm x 25mm NC Trek Rx balloon across target lesion- successful. reused? No dspellman 02:29 PM Balloon inflated @ 16 brenda for 16 seconds dspellman 02:30 PM Balloon inflated @ 18 brenda for 23 seconds dspellman 02:30 PM Balloon inflated @ 18 brenda for 16 seconds dspellman 02:31 PM HR=59 bpm, QIVX=351/79 mmhg, YwZ0=665.0 %, Resp=13 B/min, Comment=NSR 02:31 PM Guide wire removed intact. dspellman 02:31 PM Recorded Pressure: Ao, HR=56, Condition=Condition 1 (Aorta) Ao 168/59/101 02:32 PM Balloon catheter removed intact. dspellman 02:36 PM 3.5mm x 12mm Synergy drug-eluting stent across target lesion- successful Lot #[id number] dspellman 02:36 PM HR=60 bpm, ZBFG=062/79 mmhg, SpO2=99.0 %, Resp=23 B/min, Comment=NSR 02:36 PM Stent deployed @ 16 brenda for 17 seconds dspellman 02:37 PM Stent delivery system removed intact. dspellman 02:39 PM 3.5mm x 12mm Synergy drug-eluting stent across target lesion- successful Lot #[id number] dspellman 02:41 PM Stent deployed @ 8 brenda for 13 seconds dspellman 02:41 PM HR=60 bpm, KEFK=826/77 mmhg, SpO2=98.0 %, Resp=18 B/min, Comment=NSR 02:41 PM Stent delivery system removed intact. dspellman 02:42 PM 4.0 mm x 12mm NC Emerge balloon across target lesion- successful. reused? No dspell 02:43 PM Balloon inflated @ 14 brenda for 20 seconds dspellman 02:44 PM Balloon inflated @ 14 brenda for 12 seconds dspellman 02:44 PM Balloon inflated @ 15 brenda for 12 seconds dspellman 02:45 PM Balloon inflated @ 14 brenda for 11 seconds dspellman 02:45 PM Balloon catheter removed intact. dspell 02:46 PM HR=60 bpm, PUBC=280/73 mmhg, QeS8=211.0 %, Resp=11 B/min, Comment=NSR 02:46 PM Guide wire removed intact. dspell 02:46 PM Procedure completed at 14:46 dspell 02:46 PM Did you address LIZZETTE flow and Dominance? Yes dspell 02:51 PM HR=61 bpm, ZZWB=771/79 mmhg, CkP5=134.0 %, Resp=16 B/min, Comment=NSR 02:52 PM Sign out completed: Radiation Dose 1119.53 mGy Fluoro Time: 13.0 Isovue 370 - 200ml contrast 100 ml given by J Luis Waldron DO. Complications: NoneCardiac Rehab Consult needed: NoConfirmed administered medications: Yes dsp 02:52 PM Isovue 370 - 200ml,1 Bottle(s) used. dsp 02:53 PM Sheath left in place to be pulled on floor/holding areaV+Pad dspell 02:53 PM Estimated Blood Loss: minimal dspell 02:53 PM Post ECG NSR dspell 02:53 PM Post Blood Pressure 162/79 dspell 02:54 PM Time: 14:54 Angiomax 1.75mg/kg/hr: ml Dc'd Given by Ismael Alva RN Blanco pump dspell 02:56 PM Lesion found in Distal RCA. Pre Stenosis: 80 Pre LIZZETTE Flow: 3: Complete and Brisk Flow/Perfusion dspellman 03:03 PM Lesion found in Proximal Circumflex. Pre Stenosis: 80 Pre LIZZETTE Flow: 3: Complete and Brisk Flow/Perfusion dspellman 03:03 PM Lesion found in 1st Marginal. Pre Stenosis: 80 Pre LIZZETTE Flow: 3: Complete and Brisk Flow/Perfusion dspellman 03:14 PM Pt voided 200 CC kkallner 04:12 PM Delay to floor Bed availability kwitte 04:12 PM Complications: None kwitte 04:12 PM Report given to Delilah CANTU Pt taken to Holding room Room #2n4. 16:12 kwitte 04:17 PM Patient voided 200cc clear yellow urine per urinal. kwitte 04:17 PM Patient out of room: 16:17 kwitte Complications Complication None None Hemodynamics Pressures Site Systolic/A Wave Diastolic/V Wave Mean LV 143 0 3 LV 152 10 4 AO 150 40 90 AO 137 54 83 AO 132 50 83 AO 162 63 99 AO 168 59 101 Post Procedure Information Blood Pressure: 162/79 mmHg Rhythm: NSR Site Checks Time Location Status Staff Sheath In? Note 03:12 PM Rt Groin No bleeding/ No Hematoma Milton Obregon RN Yes 03:21 PM Rt Groin No bleeding/ No Hematoma Kallner, Savanna RT Yes 03:29 PM Rt Groin No bleeding/ No Hematoma Kallner, [place] RT Yes 03:43 PM Rt Groin No bleeding/ No Hematoma Kallner, [place] RT Yes 04:00 PM Rt Groin No bleeding/ No Hematoma Kallner, Savanna RT Yes Pulses Time Site Pre-Procedure Post-Procedure Note 11/05/2017 12:46:00 PM Bilateral DP & PT 2+ 11/05/2017 4:00:00 PM Bilateral DP & PT 2+ Updated by Milton Obregon RN on 11/05/2017 4:17:42 PM Milton Obregon RN electronically signed on 11/05/2017 4:18:07 PM with status of Final
[2017-11-05] MEDS: 0.9 % Sodium Chloride 1,000 ML IVC SCH (17:35)
--- NOTE | 2017-11-05 17:43 | Internal Med Progress Note ---
Date of Encounter: 11/06/17 Time of Encounter: 17:43 - Assessment and plan (1) Chest pain Current Visit: Yes Status: Acute Assessment and plan: Patient has typical chest pain with left arm radiation. Has history of CAD. Respond to NTG. Need to rule out ACS. - Troponin negative x3 - Continue cardiac monitoring. [facility] today, recommendations pending. Qualifiers: Chest pain type: precordial pain Qualified Code(s): R07.2 - Precordial pain (2) Lung nodule Current Visit: Yes Status: Acute Assessment and plan: CT chest done, will recommend follow-up with primary care physician. (3) Bradycardia Current Visit: No Status: Acute Assessment and plan: Currently on tele monitoring he is running 50s. He currently does not have any complaints of pain. Will monitor and hold atenolol (4) Congestive heart failure Current Visit: No Status: Acute Assessment and plan: Appears euvolemic at this point. Continue Lasix by mouth daily Qualifiers: Heart failure type: diastolic Heart failure chronicity: acute Qualified Code(s): I50.31 - Acute diastolic (congestive) heart failure (5) S/P PTCA (percutaneous transluminal coronary angioplasty) Current Visit: No Status: Acute (6) CAD (coronary artery disease) Current Visit: Yes Status: Chronic Assessment and plan: Patient has known CAD S/P stent and PTCA. Last [facility] in Jul 2017, still have non- stented stenosis. Recommend aggressive medical management. Continue aspirin, Plavix, and atenolol. Patient is allergic to statin. Qualifiers: Coronary Disease-Associated Artery/Lesion type: [place] artery [place] vs. transplanted heart: [place] heart Associated angina: without angina Qualified Code(s): I25.10 - Atherosclerotic heart disease of [place] coronary artery without angina pectoris (7) CKD (chronic kidney disease) stage 3, GFR 30-59 ml/min Current Visit: Yes Status: Chronic Assessment and plan: GFR 34 - at baseline (8) DVT prophylaxis Current Visit: Yes Status: Acute Assessment and plan: Heparin 5,000 units SQ BID - Subjective Interval history: Patient states left arm/chest pain improved with nitro drip, but now having headache side effects. He denies shortness of breath, nausea/vomiting, fevers/ chills, palpitations - Constitutional Vitals: Temp Pulse Resp BP Pulse Ox 97.9 F 58 16 153/78 96 03/02/18 16:36 11/05/17 16:57 11/05/17 16:57 11/05/17 16:57 11/05/17 16:57 General appearance: Present: A&O X 3, no acute distress, answers questions appropriately - Head Head exam: Present: atraumatic, normocephalic - Eye Eye exam: Present: PERRL, conjuntiva pink, sclera anicteric Pupils: Present: PERRL - Neck Neck exam general surgery: Present: supple, trachea midline. Absent: lymphadenopathy - Respiratory Respiratory exam: Present: CTAB. Absent: accessory muscle use, rales, rhonchi, wheezes - Cardiovascular Cardiovascular exam: Present: bradycardia, +S1, +S2. Absent: diastolic murmur, gallop, rubs, systolic murmur - GI/Abdominal GI/Abdominal exam: Present: normal bowel sounds, soft, no peritoneal signs. Absent: distended, tenderness - Extremities Exam Extremities exam: Present: warm, radial pulses palpable and symmetrical. Absent : calf tenderness, cyanotic, pedal edema - Neurological Exam Neurological exam: Present: CN II-XII intact, oriented X3, no focal deficits. Absent: pronater drift, facial droop, speech deficit - Skin Skin exam: Present: dry, intact Internal Medicine: Result - Labs CBC & Chem 7: 11/06/17 04:29 11/06/17 04:29 Labs: Short CBC 11/05/17 Range/Units 10:06 WBC 6.1 (4.3-11.1) K/mcL Hgb 13.2 D (12.9-16.9) g/dL Hct 40.4 (37.5-50.1) % Plt Count 210 (140-400) K/mcL BMP 11/05/17 10:06 Sodium 136 Potassium 4.7 Chloride 101 Carbon Dioxide 29 BUN 38 H Creatinine 1.74 H Glucose 97 Calcium 9.4 - ABG Interpretation ABG results: PT/INR, D-dimer PT 10.8 Seconds (9.4-12.1) 11/04/17 01:13 Consult Discharge Plan - Plan Referrals: [facility], Cardiology [Other] (office will call patient at home with follow up appointment) Tiffanie Ascencio CNP [Primary Care Provider] - 11/12/17 9:00 am
--- NOTE | 2017-11-05 20:38 | Electrocardiograph Report ---
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
--- NOTE | 2017-11-05 20:39 | Electrocardiograph Report ---
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
[2017-11-06] MEDS: 0.9 % Sodium Chloride 1,000 ML IVC SCH (04:23)
[2017-11-06 04:49] LABS: Basophils # 0.1 K/mcL (0.0-0.2); Basophils % 0.9 %; Eosinophils # 0.1 K/mcL (0.0-0.6); Eosinophils % 2.3 %; Hemoglobin 11.8 g/dL (12.9-16.9); Immature Granulocytes % 0.8 % (0-4); Lymphocytes # 0.8 K/mcL (0.6-4.6); Lymphocytes % 14.6 %; Mean Corpuscular HGB Conc 31.9 g/dL (31.6-35.5); Mean Corpuscular Hemoglobin 30.6 pg (28.0-33.3); Mean Corpuscular Volume 96.1 fL (83.0-100.0); Mean Platelet Volume 8.7 fL (9.4-12.4); Neutrophils # 3.4 K/mcL (1.6-8.9); Platelet Count 202 K/mcL (140-400); Red Blood Count 3.85 M/mcL (4.19-5.50); Segmented Neutrophils % 63.4 %
[2017-11-06 05:13] LABS: Calcium 8.8 mg/dL (8.6-10.3); Potassium 4.3 mEq/L (3.5-5.1)
[2017-11-06] MEDS: *HR* Heparin 5,000 UNIT/ML VIAL SQ SCH (05:51)
[2017-11-06] MEDS: Multivit/Ca/Min/Fe/FA 1 TAB TABLET PO SCH (07:56)
[2017-11-06] MEDS: Aspirin Enteric Coated 81 MG Tablet PO SCH (07:56)
--- NOTE | 2017-11-06 08:20 | Cardiology Progress Note ---
Date of Encounter: 11/06/17 Time of Encounter: 08:00 Assessment and Plan (1) CAD (coronary artery disease) Current Visit: Yes Status: Chronic Per cardiology: -Known CAD. -Last [facility] 07/2017 with 30% left main, 40% proximal LAD, 90% ostial/proximal circumflex, 40% ramus, 30% proximal RCA, 99% instent restenosis mid RCA with balloon angioplasty with final stenosis of 0%, 30% distal RCA, 99% RPL small vessel. -On asa, plavix, imdur, was on beta mariely in outpateint setting. . -Admtted left arm and left neck pain, Relieved with nitro drip. -TTE 10/2017 with LVEF preserved, no segmental wall motion abnormalities. -ECG with no acute ischemic changes. Troponins negative x3. Denies current pain. 11/05/17: abnormal nuclear stress--significant worsening of baseline abnormal ST/ T with regadenoson, medium sized, moderate intensity reversible inferolateral perfusion defect suggestive of ischemia. 11/05/17: C--s/p succesful PTCA/NAKUL of ISR of mid-distal RCA stenosis. Existing severe LCx stenosis. No chest pain overnight. Emphasis placed on the importance of uninterrupted DAPT (asa + plavix) for a minimum of 1 year--pt verbalized understanding. Continue betablocker. No statin d/t allergy,intolerance. Will coordinate outpt follow-up with Dr. Waldron for evaluation of staged procedure for LCx stenosis. Cardiology will sign-off, please call with questions. Qualifiers: Coronary Disease-Associated Artery/Lesion type: [place]all artery [place] vs. transplanted heart: marshall heart Associated angina: without angina Qualified Code(s): I25.10 - Atherosclerotic heart disease of marshall coronary artery without angina pectoris (2) CKD (chronic kidney disease) stage 3, GFR 30-59 ml/min Current Visit: Yes Status: Chronic Kidney function improved today. Stable s/p LHC. Continue to avoid nephrotoxins if able. Discussion w patient/family: The assessment and plan as outlined above was discussed with the patient and/or family members who expressed understanding and agreement. All questions were answered. Thank you for involving us in the care of your patient. Please call with any questions. The patient will be discussed and reviewed with Dr. Connelly; changes to be made accordingly. Cardiology will sign-off, will arrange outpatient follow-up. Subjective Principal diagnosis: Abnormal stress/unstable angina Interval history: Seen and examined. No recurrent chest pain or discomfort overnight. No issues with groin site. Findings of LHC discussed in detail with patient. No other new symptoms reported. Objective Vital Signs, Last 4 Hours Temp Pulse Resp BP Pulse Ox 11/06/17 08:02 80 11/06/17 07:24 97.8 F 52 16 151/63 99 General: Conversant, No Apparent Distress HEENT: Atraumatic, Normocephaly, Mucus Membranes Moist Neck: No JVD, Normal carotid pulses Cardiac: Reg Rate and Rhythm, Normal S1 and S2, No Murmur Lungs: Normal Breath Sounds, No Wheeze, Rales, Rhonchi Neuro: Alert and responsive, No focal deficits noted Abdomen: Soft, Non-Tender Skin: No rashes noted on visualized skin Musculoskeletal: No Chest Wall Tenderness Extremities: No Clubbing, No Cyanosis, No Edema, Normal Pulses Results 11/06/17 04:29 11/06/17 04:29 Lab Results 11/05/17 11/05/17 11/06/17 10:06 10:06 04:29 WBC 6.1 5.3 Hgb 13.2 D 11.8 L Hct 40.4 37.0 L Plt Count 210 202 Sodium 136 Potassium 4.7 Chloride 101 Carbon Dioxide 29 BUN 38 H Creatinine 1.74 H Glucose 97 Calcium 9.4 11/06/17 04:29 WBC Hgb Hct Plt Count Sodium 138 Potassium 4.3 Chloride 105 Carbon Dioxide 28 BUN 33 H Creatinine 1.54 H Glucose 95 Calcium 8.8 Active Medications Acetaminophen (Tylenol) 650 mg PO Q6HR PRN PRN Reason: Mild Pain/Fever Stop: 05/06/18 03:14 Last Admin: 11/04/17 22:47 Dose: 650 mg Hydrocodone Bitart/Acetaminophen ([place] 5-325 Mg) 1 tab PO Q6HR PRN PRN Reason: Moderate Pain Stop: 05/06/18 03:14 Last Admin: 11/04/17 10:10 Dose: 1 tab Aspirin (Aspirin Ec) 81 mg PO DAILY [facility] Stop: 05/06/18 09:01 Last Admin: 11/06/17 07:56 Dose: 81 mg Atenolol (Tenormin) 6.25 mg PO DAILY [facility] Stop: 05/06/18 09:01 Last Admin: 11/04/17 12:28 Dose: Not Given Clopidogrel Bisulfate (Plavix) 75 mg PO DAILY [facility] Stop: 05/06/18 09:01 Last Admin: 11/06/17 07:56 Dose: 75 mg Furosemide (Lasix) 20 mg PO DAILY [facility] Stop: 05/06/18 09:01 Last Admin: 11/05/17 10:34 Dose: 20 mg Heparin Sodium (Porcine) (Heparin) 5,000 unit SQ Q12HCO [facility] Stop: 05/06/18 06:01 Last Admin: 11/06/17 05:51 Dose: 5,000 unit Hydralazine HCl (Hydralazine) 10 mg IVP Q6HR PRN PRN Reason: SEE COMMENTS Stop: 05/06/18 12:42 Sodium Chloride (0.9 % Sodium Chloride) 1,000 mls @ 100 mls/hr IVC .Q10H [facility] Stop: 05/07/18 15:01 Last Admin: 11/06/17 04:23 Dose: 100 mls/hr Multivitamins/Calcium (Thera M Plus) 1 tab PO DAILY [facility] Stop: 05/06/18 09:01 Last Admin: 11/06/17 07:56 Dose: 1 tab Naloxone HCl (Narcan) 0.4 mg IVP Q2MIN PRN PRN Reason: SEE COMMENTS Stop: 05/06/18 03:14 Nitroglycerin (Nitroglycerin) 0.4 mg SL Q5M PRN PRN Reason: Chest Pain Stop: 05/06/18 03:18 Nitroglycerin (Nitroglycerin) 0.2 mg TD 0730 [facility] Stop: 05/06/18 13:02 Last Admin: 11/04/17 13:44 Dose: 0.2 mg Vitamin E (Vitamin E) 400 unit PO DAILY [facility] Stop: 05/06/18 09:01 Last Admin: 11/06/17 07:59 Dose: 400 unit - Imaging and Cardiology Echo: report reviewed Cardiac cath: report reviewed Other Results: 12 hour tele: avg HR=59 SB. No signifcant event noted. - EKG Interpretation EKG results cardiology: personally reviewed Consult Discharge Plan - Plan Referrals: [facility] [Other] (office will call patient at home with follow up appointment) Tiffanei Ascencio [employer] [Primary Care Provider] - 11/12/17 9:00 am
[2017-11-06 11:24] VITALS: BP 113/94
--- NOTE | 2017-11-06 13:15 | Internal Med Progress Note ---
Date of Encounter: 11/06/17 Time of Encounter: 13:15 - Assessment and plan (1) Chest pain Current Visit: Yes Status: Acute Qualifiers: Chest pain type: precordial pain Qualified Code(s): R07.2 - Precordial pain (2) Lung nodule Current Visit: Yes Status: Acute (3) Bradycardia Current Visit: No Status: Acute (4) Congestive heart failure Current Visit: No Status: Acute Qualifiers: Heart failure type: diastolic Heart failure chronicity: acute Qualified Code(s): I50.31 - Acute diastolic (congestive) heart failure (5) S/P PTCA (percutaneous transluminal coronary angioplasty) Current Visit: No Status: Acute (6) CAD (coronary artery disease) Current Visit: Yes Status: Chronic Qualifiers: Coronary Disease-Associated Artery/Lesion type: [place] artery [place] vs. transplanted heart: [place] heart Associated angina: without angina Qualified Code(s): I25.10 - Atherosclerotic heart disease of [place] coronary artery without angina pectoris (7) CKD (chronic kidney disease) stage 3, GFR 30-59 ml/min Current Visit: Yes Status: Chronic (8) DVT prophylaxis Current Visit: Yes Status: Acute - Subjective Interval history: Patient states left arm/chest pain improved with nitro drip, but now having headache side effects. He denies shortness of breath, nausea/vomiting, fevers/ chills, palpitations - Constitutional Vitals: Temp Pulse Resp BP Pulse Ox 98.0 F 68 18 113/94 96 11/06/17 11:19 11/06/17 11:19 11/06/17 11:19 11/06/17 11:19 11/06/17 11:19 General appearance: Present: A&O X 3, no acute distress, answers questions appropriately Internal Medicine: Result - Labs CBC & Chem 7: 11/06/17 04:29 11/06/17 04:29 Labs: Short CBC 11/06/17 Range/Units 04:29 WBC 5.3 (4.3-11.1) K/mcL Hgb 11.8 L (12.9-16.9) g/dL Hct 37.0 L (37.5-50.1) % Plt Count 202 (140-400) K/mcL Neutrophils # 3.4 (1.6-8.9) K/mcL BMP 11/06/17 04:29 Sodium 138 Potassium 4.3 Chloride 105 Carbon Dioxide 28 BUN 33 H Creatinine 1.54 H Glucose 95 Calcium 8.8 - ABG Interpretation ABG results: PT/INR, D-dimer PT 10.8 Seconds (9.4-12.1) 11/04/17 01:13 Consult Discharge Plan - Plan Referrals: [facility] [Other] (office will call patient at home with follow up appointment) Ascencio,Tiffanie Green CNP [Primary Care Provider] - 11/12/17 9:00 am
--- NOTE | 2017-11-06 13:24 | Discharge Summary ---
- NOTES TO OUTPATIENT PROVIDER Notes to Outpatient Provider: - Follow-up with lung nodeules seen on chest x- ray but not seen on CT of chest. - Follow-up heart rate: Atenolol was held on discharge because of bradycardia. Orders not resulted at time of discharge: Pending orders 11/05/17 05:50 NM shakeel perf SPECT multi [NM] Routine Date of Encounter: 11/06/17 Time of Encounter: 13:19 - Discharge Diagnosis (1) Chest pain Priority: Primary Status: Acute Qualifiers: Chest pain type: precordial pain Qualified Code(s): R07.2 - Precordial pain (2) Lung nodule Priority: Secondary Status: Acute (3) Bradycardia Priority: Secondary Status: Acute (4) Congestive heart failure Priority: Secondary Status: Acute Qualifiers: Heart failure type: diastolic Heart failure chronicity: acute Qualified Code(s): I50.31 - Acute diastolic (congestive) heart failure (5) S/P PTCA (percutaneous transluminal coronary angioplasty) Priority: Secondary Status: Acute (6) CAD (coronary artery disease) Priority: Secondary Status: Chronic Qualifiers: Coronary Disease-Associated Artery/Lesion type: [place] artery [place] vs. transplanted heart: [place] heart Associated angina: without angina Qualified Code(s): I25.10 - Atherosclerotic heart disease of [place] coronary artery without angina pectoris (7) CKD (chronic kidney disease) stage 3, GFR 30-59 ml/min Priority: Secondary Status: Chronic (8) DVT prophylaxis Priority: Secondary Status: Acute Hospital course: Mr. Matthews is a 87 year old male with history of CAD S/P stent, CKD, presented to ER for left arm pain and chest pain. Woke patient up from sleep. Chest pain located on left side chest, ache like, 5 out of 10, radiated to left arm and the left neck. Patient has shortness of breath. He has no nausea or diaphoresis. In emergency room, he was given NTG sublingual followed by NTG drip. His chest pain get down to 2 out of 10 after treatment. Patient was admitted to rule out ACS. He was continued on nitro drip until pain resolved. Cardiology was consulted. Atenolol was held because of bradycardia at times running in 40s bpm range. Troponin trended and were negative x3. He is not on statin due to drug allergy. He had stress test done on 11/05/17 that showed abnormality possible ischemia. Subsequently a left heart catheterization was done. He had succesful PTCA/NAKUL with 2 sents. There was again seen severe left circumflex stenosis that was seen on prior study. He was continued on DUAPT, goal for at least one year. He is set to have follow-up with Cardiology. Patient was discharged home in stable condition. - Time Spent with Patient Total time spent providing and/or coordinating discharge services: - Discharge Medications Home Medications: Aspirin [Lo-Dose Aspirin EC] 81 mg PO DAILY 07/13/17 [History] Clopidogrel [Plavix] 75 mg PO DAILY 07/13/17 [History] Multivitamin [Multivitamins] 1 each PO DAILY 07/13/17 [History] Nitroglycerin [Nitrostat] 0.4 mg SL Q5M PRN 07/13/17 [History] Vitamin E (Dl,Tocopheryl Acet) [Vitamin E] 400 unit PO DAILY 07/13/17 [History] Furosemide [Lasix] 20 mg PO DAILY #30 tablet 11/01/17 [Rx] Allergies/Adverse Reactions: 3 Allergy/AdvReac Type Severity Reaction Status Date / Time Toozbwu-Ogq-Vyq Reductase AdvReac Weakness Verified 07/13/17 09:30 Inhibitor [Statins] Date of admission: 11/04/17 02:15 Primary care physician: Tiffanie Ascencio CNP Consults: 11/04/17 03:19 Consult to Cardiology [CONS] Routine Comment: Consulting Provider: Cardiology Emma Reason for Consult: CAD s/p stent, chest pain, need consult to optimize medication Call Completed: No 11/06/17 09:04 Consult to Cardiac Rehabilitation-Phase1 [CONS] ONCE Comment: Reason for Consult: PCI Call Completed: No Discharging clinician: Nataliia Irene - Constitutional Vitals: Temp Pulse Resp BP Pulse Ox 98.0 F 68 18 113/94 96 11/06/17 11:19 11/06/17 11:19 11/06/17 11:19 11/06/17 11:19 11/06/17 11:19 General appearance: Present: A&O X 3, no acute distress, answers questions appropriately Exam: - Head Head exam: Present: atraumatic, normocephalic - Eye Eye exam: Present: PERRL, conjuntiva pink, sclera anicteric Pupils: Present: PERRL - Neck Neck exam general surgery: Present: supple, trachea midline. Absent: lymphadenopathy - Respiratory Respiratory exam: Present: CTAB. Absent: accessory muscle use, rales, rhonchi, wheezes - Cardiovascular Cardiovascular exam: Present: bradycardia, +S1, +S2. Absent: diastolic murmur, gallop, rubs, systolic murmur - GI/Abdominal GI/Abdominal exam: Present: normal bowel sounds, soft, no peritoneal signs. Absent: distended, tenderness - Extremities Exam Extremities exam: Present: warm, radial pulses palpable and symmetrical. Absent : calf tenderness, cyanotic, pedal edema - Neurological Exam Neurological exam: Present: CN II-XII intact, oriented X3, no focal deficits. Absent: pronater drift, facial droop, speech deficit - Skin Skin exam: Present: dry, intact - Patient Status Disposition: Home, Self-Care Condition: Fair Functional capacity at discharge: independent ambulation Overall status at discharge: patient is progressing back to baseline - Discharge Instructions Follow Up With: [facility] [Other] (office will call patient at home with follow up appointment) Ascencio,Tiffanie Green CNP [Primary Care Provider] - 11/12/17 9:00 am - Diet and Activity Activity: return to school once cleared by your PCP/specialist Diet: low fat, low cholesterol, low salt diet
== END 2017-11-06 14:21 | disposition home or self-care (01) ==
LOC: 2SOUTHHOLD 00:50 → EMEROO 00:50 → 2SOUTHHOLD 02:30 → 3BNU 18:28 → 2NNU 11-05 14:57
PROVIDERS: ADMIT Internal Medicine; ATTEND Internal Medicine

== ENCOUNTER 2017-12-07 06:05 | Observation (INO) ==
--- NOTE | 2017-12-07 06:20 | Emergency Department Note ---
Disposition Clinical Impression: New onset a-fib Disposition: Still a Patient Condition: Fair Referrals: Tiffanie Ascencio CNP [Primary Care Provider] - Forms: ED Satisfaction Letter General Adult HPI - General Chief complaint: ED Chest Pain Stated complaint: Right side neck/shoulder pain Time Seen by Provider: 12/07/17 06:06 Source: patient, EMS Mode of arrival: EMS Limitations: no limitations Nursing Notes Reviewed: Yes Vital Signs Reviewed: Yes - History of Present Illness HPI Narrative: 87-year-old male with significant past medical history of chronic kidney disease , coronary artery disease with recent stent placement 2 months ago presenting to the emergency Department chief complaint of right-sided shoulder and neck pain. Patient states he was sleeping when he was awoken from sleep with severe right shoulder pain that radiated up into the right side of his neck. He denies nausea or diaphoresis. Patient tried to 4 nitroglycerin at home with no relief. EMS gave 325 of aspirin. Patient describes 2 out of 10 pain in the shoulder at this time. Patient denies shortness of breath, fevers or recent illnesses. - Related Data Home Medications Medication Instructions Recorded Confirmed Aspirin [Lo-Dose Aspirin EC] 81 mg PO DAILY 07/13/17 11/04/17 Clopidogrel [Plavix] 75 mg PO DAILY 07/13/17 11/04/17 Multivitamin [Multivitamins] 1 each PO DAILY 07/13/17 11/04/17 Nitroglycerin [Nitrostat] 0.4 mg SL Q5M PRN 07/13/17 11/04/17 Vitamin E (Dl,Tocopheryl Acet) 400 unit PO DAILY 07/13/17 11/04/17 [Vitamin E] Previous Rx's Medication Instructions Recorded Furosemide [Lasix] 20 mg PO DAILY #30 tablet 11/01/17 Allergies Allergy/AdvReac Type Severity Reaction Status Date / Time Jsdxzwj-Lfy-Cyn Reductase AdvReac Weakness Verified 12/07/17 06:08 Inhibitor [Statins] All systems ED: reviewed and negative except as stated. Musculoskeletal: Reports: neck pain Past Medical History - Past Medical History Attestation: Yes The following information was validated with the patient. Medical history: Reports: CHF, coronary artery disease, GERD, hyperlipidemia, hypertension, myocardial infarction Surgical history: Reports: angioplasty/stent, appendectomy Psychiatric history: Reports: no psych history - Social History Smoking Status: Former smoker Smokeless Tobacco Status: No Alcohol use: Reports: none Drug use: Reports: none Physical Exam - General Limitations: no limitations General appearance: alert, in no apparent distress - Head Head exam: atraumatic, normocephalic, normal inspection - Eye Eye exam: Present: normal appearance. Absent: scleral icterus, conjunctival injection - ENT ENT exam: normal exam, mucous membranes moist - Neck Neck exam: Present: normal inspection, full ROM. Absent: tenderness, meningismus - Chest Chest inspection: Present: normal inspection, symmetric chest wall rise. Absent : tenderness, rash - Respiratory Respiratory exam: Present: normal lung sounds bilaterally. Absent: respiratory distress, wheezes - Cardiovascular Cardiovascular exam: Present: bradycardia, irregular rhythm, normal heart sounds - Abdominal Exam Abdominal exam: Present: soft, Non-Tender. Absent: distention, guarding, rebound - Extremities Exam Extremities exam: Present: normal inspection, full ROM - Neurological Exam Neurological exam: Present: alert, oriented X3 - Psychiatric Psychiatric exam: Present: normal affect, normal mood - Skin Skin exam: Present: warm, intact Course Course Narrative: 87-year-old male presenting with chief complaint of right-sided shoulder pain radiating into his neck. Patient has significant cardiac history including we will treat the neck pain as an anginal equivalent. We will perform chest pain workup including troponin, EKG and chest x-ray. Patient is alert and oriented 3 in the room with stable vital signs. Patient agrees with this plan. Disposition pending results. - Reevaluation(s) Reevaluation #1: Patient's EKG shows new onset atrial fibrillation and bradycardia. We will continue laboratory analysis and chest x-ray but plan will be to admit the patient for new onset A. fib. Patient is alert and oriented 3 in the room with stable vital signs. We will sign the patient out to the physician coming on this morning Dr. Allison. Vital Signs Temperature 97.8 F 12/07/17 06:18 Pulse Rate 58 12/07/17 06:18 Respiratory Rate 14 12/07/17 06:18 Blood Pressure 149/77 12/07/17 06:18 O2 Sat by Pulse Oximetry 99 12/07/17 06:18 Temperature 97.8 F 12/07/17 06:18 Pulse Rate 58 12/07/17 06:18 Respiratory Rate 14 12/07/17 06:18 Blood Pressure 149/77 12/07/17 06:18 O2 Sat by Pulse Oximetry 99 12/07/17 06:18 Oxygen Delivery Oxygen Delivery Room Air Medical Decision Making - EKG Data EKG #1 EKG attestation: Yes I reviewed and interpreted this EKG. EKG results narrative: Atrial fibrillation. 52 beats per minute. QRS 90, QTC 425. No signs of acute ST segment elevation or ischemia. Compared to previous EKG completed on 2017. New onset atrial fibrillation Attestation Statement - Attestation Attestation: I examined this patient and my medical decision-making was reviewed with the Resident Physician. I agree with the documented findings, disposition and treatment plan as described except to the extent set forth below. New-onset A. fib. Patient is on Plavix. Also has 90% occlusion needs one additional stent. The patient is stable at time of admission. We will admit for evaluation of A. fib in the setting of bradycardia and new onset A. fib.
[2017-12-07 06:51] LABS: Prothrombin Time 10.8 Seconds (9.4-12.1)
[2017-12-07 06:54] LABS: Activated Partial Thrombo Time 27.4 Seconds (26.0-36.0)
[2017-12-07 06:56] LABS: Basophils # 0.1 K/mcL (0.0-0.2); Basophils % 1.1 %; Eosinophils # 0.1 K/mcL (0.0-0.6); Eosinophils % 2.5 %; Hematocrit 35.7 % (37.5-50.1); Hemoglobin 11.7 g/dL (12.9-16.9); Immature Granulocytes % 1.1 % (0-4); Lymphocytes # 0.6 K/mcL (0.6-4.6); Lymphocytes % 13.8 %; Mean Corpuscular HGB Conc 32.8 g/dL (31.6-35.5); Mean Corpuscular Hemoglobin 31.9 pg (28.0-33.3); Mean Corpuscular Volume 97.3 fL (83.0-100.0); Mean Platelet Volume 8.6 fL (9.4-12.4); Monocytes # 0.7 K/mcL (0.0-1.3); Monocytes % 16.1 %; Neutrophils # 2.9 K/mcL (1.6-8.9); Platelet Count 242 K/mcL (140-400); Red Blood Count 3.67 M/mcL (4.19-5.50); Red Cell Distribution Width 12.2 % (11.5-14.5); Segmented Neutrophils % 65.4 %
--- NOTE | 2017-12-07 07:02 | Electrocardiograph Report ---
[facility] [employer] [facility] Test Date: 2017-12-07 Pat Name: Foster Matthews Department: 103 Room: Gender: M Director Of [employer]: : 1930 Requested By: Elizabeth Merrill Order Number: [id number] Reading MD: Sha Gupta Measurements Intervals [place] Rate: 52 P: MD: 0 QRS: 14 QRSD: 90 T: 30 QT: 444 QTc: 425 Interpretive Statements ATRIAL FIBRILLATION WITH SLOW VENTRICULAR RESPONSE MINIMAL ST DEPRESSION [0.025+ mV ST DEPRESSION] ABNORMAL RHYTHM ECG Electronically Signed On 12-07-2017 7:00:06 EDT by Sha Gupta
[2017-12-07 07:10] LABS: BUN/Creatinine Ratio 18 (6-26); Blood Urea Nitrogen 31 mg/dL (8-23); Calcium 9.1 mg/dL (8.6-10.3); Carbon Dioxide 26 mEq/L (23-29); Chloride 104 mEq/L (98-107); Glucose 99 mg/dL (70-105); Osmolality,Calculated 291 (280-300); Potassium 4.3 mEq/L (3.5-5.1); Sodium 137 mEq/L (136-145); eGFR For African Americans 46 (> 60); eGFR For Non-African Americans 38 (> 60)
[2017-12-07 07:11] LABS: Troponin I < 0.03 ng/mL (< 0.04)
--- NOTE | 2017-12-07 07:37 | Emergency Department Note ---
Disposition Clinical Impression: Headache Qualifiers: Headache type: unspecified Headache chronicity pattern: unspecified pattern Intractability: not intractable Qualified Code(s): R51 - Headache Chest pain Qualifiers: Chest pain type: unspecified Qualified Code(s): R07.9 - Chest pain, unspecified Arrhythmia Qualifiers: Arrhythmia type: unspecified cardiac arrhythmia Qualified Code(s): I49.9 - Cardiac arrhythmia, unspecified Disposition: Admitted As Inpatient Condition: Fair Referrals: Sonu,Tiffanie Green CNP [Primary Care Provider] - Forms: ED Satisfaction Letter Time of Disposition: 07:39 General Adult HPI - General Chief complaint: ED Chest Pain Stated complaint: Right side neck/shoulder pain Time Seen by Provider: 12/07/17 06:06 Source: patient, EMS Mode of arrival: EMS Limitations: no limitations - History of Present Illness Pain Scale: 1 - Related Data Home Medications Medication Instructions Recorded Confirmed Aspirin [Lo-Dose Aspirin EC] 81 mg PO DAILY 07/13/17 12/07/17 Clopidogrel [Plavix] 75 mg PO DAILY 07/13/17 12/07/17 Multivitamin [Multivitamins] 1 each PO DAILY 07/13/17 12/07/17 Nitroglycerin [Nitrostat] 0.4 mg SL Q5M PRN 07/13/17 12/07/17 Vitamin E (Dl,Tocopheryl Acet) 400 unit PO DAILY 07/13/17 12/07/17 [Vitamin E] Sertraline [Zoloft] 25 mg PO DAILY 12/07/17 12/07/17 Previous Rx's Medication Instructions Recorded Furosemide [Lasix] 20 mg PO DAILY #30 tablet 11/01/17 Allergies Allergy/AdvReac Type Severity Reaction Status Date / Time Cbhjxfa-Xka-Obb Reductase AdvReac Weakness Verified 12/07/17 06:08 Inhibitor [Statins] Musculoskeletal: Reports: neck pain Past Medical History - Past Medical History Medical history: Reports: CHF, coronary artery disease, GERD, hyperlipidemia, hypertension, myocardial infarction Surgical history: Reports: angioplasty/stent, appendectomy Psychiatric history: Reports: no psych history - Social History Smoking Status: Former smoker Smokeless Tobacco Status: No Alcohol use: Reports: none Drug use: Reports: none Physical Exam - General Limitations: no limitations General appearance: alert, in no apparent distress Course Course Narrative: Patient seen and examined some arrival to my shift. Patient was signed out by the nighttime physicians Dr. Elizabeth Merrill and Dr. Landa. Detailed review of the patient's symptoms presentation and history were discussed. Patient woke up from sleep was not approximately 2 AM with discomfort in the right side of his neck and into his head. He had noticed a headache last night prior to going to bed. Patient denies any recent trauma or injury. He has had multiple stents and one vessel in his heart and has another 90% occlusion does need cardiac catheterization at some point according to the family. Patient is currently on Plavix and aspirin. Patient took 4 nitroglycerin prior to coming in. He is currently symptom free. EKG was collected initially reviewed by myself shows what appears to be either atrial fibrillation with slow ventricular response versus sinus bradycardia with intermittent preventricular contractions. P waves are reviewed on my evaluation and several runs of the rhythm appeared to be sinus in presentation. Patient is resting in the bed at this time. His head is atraumatic pupils are equal round reactive is a shock to her muscles are intact. His arthritis. His mucous membranes are slightly dry. Lungs are clear to auscultation all for listening [place] heart appears to be regular on exam his bilateral radial pulses are symmetric with no deviation noted. He also has bilateral symmetric presentation lower extremities. He has normal sensation. He moves all 4 extremities with purpose. He is alert he is oriented he speaks in full sentences. Patient does not appear to have any specific distress at this time. Disposition will be determined once full workup is completed. CT imaging of the head was added on my review based on patient's symptoms and history. He also will most likely require admission secondary to possible atrial fibrillation versus sinus bradycardia of unknown etiology. Patient does not have any beta blockers or rate controlling medications on board based on conversation and remote history from the family. Disposition will be admission the hospital once full workup and treatment course are completed. See detailed documentation of this conversation physical exam of the previous physician's notes. Sanchez and the family were informed of her projected treatment course and comfortable this plan. - Reevaluation(s) Reevaluation #1: CT imaging of the head is unremarkable this time. Hospitalist will be paged her symptomatic evaluation of bradycardia along with concern for anginal-like presentation. Time: 08:05 Reevaluation #2: Patient was discussed with the hospitalist Dr. Hernandez. Detailed review the presentation symptoms medical intervention and evaluation were discussed at length. Patient does not require any further intervention. Patient will be admitted at this time for definitive management and evaluation. Time: 08:13 Vital Signs Temperature 97.8 F 12/07/17 06:18 Pulse Rate 58 12/07/17 06:18 Respiratory Rate 14 12/07/17 06:18 Blood Pressure 149/77 12/07/17 06:18 O2 Sat by Pulse Oximetry 99 12/07/17 06:18 Temperature 97.8 F 12/07/17 06:18 Pulse Rate 50 12/07/17 07:05 Respiratory Rate 16 12/07/17 07:05 Blood Pressure 149/72 12/07/17 07:05 O2 Sat by Pulse Oximetry 100 12/07/17 07:05 Oxygen Delivery Oxygen Delivery Room Air Medical Decision Making - MDM Narrative Medical decision making narrative: Neck pain, headache, bradycardia - Medical Records Medical records reviewed: Yes I reviewed the patient's medical records. - Lab Data Lab results reviewed: Yes I reviewed the patient's lab results. Result diagrams: 12/07/17 06:33 12/07/17 06:33 Lab Results 12/07/17 12/07/17 12/07/17 Range/Units 06:33 06:33 06:33 WBC 4.5 (4.3-11.1) K/mcL RBC 3.67 L (4.19-5.50) M/mcL Hgb 11.7 L (12.9-16.9) g/dL Hct 35.7 L (37.5-50.1) % MCV 97.3 (83.0-100.0) fL MCH 31.9 (28.0-33.3) pg MCHC 32.8 (31.6-35.5) g/dL RDW 12.2 (11.5-14.5) % Plt Count 242 (140-400) K/mcL MPV 8.6 L (9.4-12.4) fL Immature Gran % 1.1 (0-4) % Seg Neutrophils % 65.4 % Lymphocytes % 13.8 % Monocytes % 16.1 % Eosinophils % 2.5 % Basophils % 1.1 % Neutrophils # 2.9 (1.6-8.9) K/mcL Lymphocytes # 0.6 (0.6-4.6) K/mcL Monocytes # 0.7 (0.0-1.3) K/mcL Eosinophils # 0.1 (0.0-0.6) K/mcL Basophils # 0.1 (0.0-0.2) K/mcL PT 10.8 (9.4-12.1) Seconds INR 1.0 APTT 27.4 (26.0-36.0) Seconds Sodium 137 (136-145) mEq/L Potassium 4.3 (3.5-5.1) mEq/L Chloride 104 (98-107) mEq/L Carbon Dioxide 26 (23-29) mEq/L BUN 31 H (8-23) mg/dL Creatinine 1.71 H (0.70-1.30) mg/dL Est GFR ( Amer) 46 L (> 60) Est GFR (Non-Af Amer) 38 L (> 60) BUN/Creatinine Ratio 18 (6-26) Glucose 99 (70-105) mg/dL Calculated Osmolality 291 (280-300) Calcium 9.1 (8.6-10.3) mg/dL Troponin I < 0.03 (< 0.04) ng/mL - Radiology Data Radiology results reviewed: Yes I reviewed the patient's radiology results. Chest x-ray stable with no acute intrathoracic pathology. CT head is unremarkable for intracranial bleed or mass effect. - EKG Data EKG #1 EKG attestation: Yes I reviewed and interpreted this EKG. EKG results narrative: EKG shows bradycardic rhythm. Ventricular rate of 52. Patient has what looks like 7 consistent beats in a row regular rhythm with what appears to be discernible P waves. In his preventricular contraction and then regular rhythm again. EKG was initially read as atrial fibrillation but this could be sinus bradycardia with low amplitude and intermittent PVCs. Patient is chest pain- free. EKG reviewed and compared EKG and 11/04/2017 that showed sinus bradycardia with similar morphology.
[2017-12-07] MEDS ORDERED: Nitroglycerin 0.4 MG TAB.SUBL SL PRN (08:23)
--- NOTE | 2017-12-07 08:55 | Internal Med History&Physical ---
Date of Encounter: 12/07/17 Time of Encounter: 08:25 Internal Medicine - H&P: HPI Chief complaint: Right shoulder, neck and head pain Admitted From: Emergency Dept Plans for Post Hospital Care: Home History of present illness: Mr. Matthews is a 87 year old man with known CAD who woke up at approximately 4:00 am with right-sided shoulder, neck and bilateral frontal hreadache pain. He denies any associated symptoms. He initially described the pain as sharp, radiating and 7/10 in magnitude. The pain was releived with 4 SL NG tablets. He had a recent (11/05/2017) cardiac cath showing in-stent stenosis of previous RCA mid and distal stents which were successfully restented with Audie. He has continued both aspirin and Plavix w/o missing any doses. His cath showed additional 80% occlusions of the proiximal circumflex and 1st marginal CADs, which were not stented. His ECG was interpreted as A-Fib with bradycardia, but I 'v reviewed it with the ER physician and it really is sinus kane with no ischemic changes. His other comorbid conditions include CKD-III, CHF and a lung nodule being followed as an OP per report. He's cp free and hemodynamically stable now. Past Med Surg Social Fam HX - Past Medical History Medical history: CHF, coronary artery disease, GERD, hyperlipidemia, hypertension, myocardial infarction Psychiatric history: no psych history - Past Surgical History Surgical History: angioplasty/stent, appendectomy - Social History Smoking Status: Former smoker Smokeless Tobacco Status: No Alcohol use: none Drug use: none - Family History Mother Living Status: Internal Medicine - H&P: Meds Aspirin [Lo-Dose Aspirin EC] 81 mg PO DAILY 07/13/17 [History] Clopidogrel [Plavix] 75 mg PO DAILY 07/13/17 [History] Multivitamin [Multivitamins] 1 each PO DAILY 07/13/17 [History] Nitroglycerin [Nitrostat] 0.4 mg SL Q5M PRN 07/13/17 [History] Vitamin E (Dl,Tocopheryl Acet) [Vitamin E] 400 unit PO DAILY 07/13/17 [History] Furosemide [Lasix] 20 mg PO DAILY #30 tablet 11/01/17 [Rx] Sertraline [Zoloft] 25 mg PO DAILY 12/07/17 [History] 3 Allergy/AdvReac Type Severity Reaction Status Date / Time Gqnliex-Yxc-Ptb Reductase AdvReac Weakness Verified 12/07/17 06:08 Inhibitor [Statins] All Systems PM: A 10-system review of systems was performed and is negative for pertinent findings except as documented above in the HPI. - Constitutional Constitutional: no anorexia, no chills, no fever(s), no night sweats, no weakness - EENT Eyes: no change in vision, no discharge, no pain, no photophobia Ears: no ear discharge, no ear pain, no tinnitus Nose, mouth and throat: no dysphagia, no nasal discharge, no neck pain, no sore throat - Cardiovascular Cardiovascular ROS IM: no chest pain, no diaphoresis, no dyspnea, no lightheadedness, no palpitations, no syncope - Respiratory Respiratory: no cough, no dyspnea, no wheezing, no stridor, no excessive phlegm production - Gastrointestinal Gastrointestinal: no abdominal pain, no diarrhea, no hematemesis, no hematochezia, no melena, no nausea, no vomiting - Musculoskeletal Musculoskeletal ROS IM: no numbness, no tingling - Integumentary Integumentary IM: no rash, no unusual bruising - Neurological Neurological ROS: no abnormal speech, no behavioral changes, no confusion, no convulsions, no disequilibrium, no dizziness, no focal weakness, no numbness, no tingling, no tremor(s) - Psychiatric Psychiatric: no anxiety, no irritability - Hematologic/Lymphatic Hematologic/Lymphatic: no easy bruising - Constitutional Vitals: Temp Pulse Resp BP Pulse Ox 97.8 F 51 18 145/71 97 12/07/17 06:18 12/07/17 08:02 12/07/17 08:02 12/07/17 08:02 12/07/17 08:02 General appearance: Present: A&O X 3, pleasant, no acute distress - Head Head exam: Present: atraumatic, normocephalic - Eye Eye exam: Present: EOMI, PERRL, conjuntiva pink, sclera anicteric Pupils: Present: PERRL - Neck Neck exam general surgery: Present: supple, trachea midline. Absent: lymphadenopathy - Respiratory Respiratory exam: Present: CTAB. Absent: accessory muscle use, rales, rhonchi, stridor, wheezes - Cardiovascular Cardiovascular exam: Present: RRR, +S1, +S2. Absent: diastolic murmur, gallop, rubs, systolic murmur - GI/Abdominal GI/Abdominal exam: Present: normal bowel sounds, soft, no peritoneal signs. Absent: distended, tenderness - Extremities Exam Extremities exam: Present: warm, radial pulses palpable and symmetrical. Absent : calf tenderness, cyanotic, pedal edema - Neurological Exam Neurological exam: Present: CN II-XII intact, oriented X3, no focal deficits. Absent: pronater drift, facial droop, speech deficit - Skin Skin exam: Present: dry, intact Internal Med - H&P Results - Labs CBC & Chem 7: 12/07/17 06:33 12/07/17 06:33 Labs: Short CBC 12/07/17 Range/Units 06:33 WBC 4.5 (4.3-11.1) K/mcL Hgb 11.7 L (12.9-16.9) g/dL Hct 35.7 L (37.5-50.1) % Plt Count 242 (140-400) K/mcL Neutrophils # 2.9 (1.6-8.9) K/mcL BMP 12/07/17 06:33 Sodium 137 Potassium 4.3 Chloride 104 Carbon Dioxide 26 BUN 31 H Creatinine 1.71 H Glucose 99 Calcium 9.1 Cardiac Enzymes 12/07/17 Range/Units 06:33 Troponin I < 0.03 (< 0.04) ng/mL - EKG Data -: EKG Interpreted by Myself - Impressions ITS Impressions Chest X-Ray 12/07/17 06:11 IMPRESSION: No acute disease. D/ / Robert Garcia MD / Robert Garcia MD Interpreting Provider: Robert Garcia MD Head CT 12/07/17 07:19 IMPRESSION: No acute intracranial abnormality. D/ / Uday Ivey MD / Uday Ivey MD Interpreting Provider: Uday Ivey MD - Assessment and plan (1) CAD (coronary artery disease) Current Visit: Yes Status: Acute Assessment and plan: He denies chest pain but was having right shoulder and neck pain now resolved with SL-NG. Trend troponins. Initial troponin neg. ECG did not show ischemic changes. Continue telemetry. Continue Aspirin, Plavix, BB,SL NG. He is allergic to statins. Cardiology conulted. NPO for possible cardiac cath lab technologist. Prior cath showed 80% stenosis of circ and 1st marginal. He also had instent stenosis of mid and distal RCA which where stented. Qualifiers: Coronary Disease-Associated Artery/Lesion type: [place] artery [place] vs. transplanted heart: [place] heart Associated angina: without angina Qualified Code(s): I25.10 - Atherosclerotic heart disease of [place] coronary artery without angina pectoris (2) Headache Current Visit: Yes Status: Acute Assessment and plan: Resolved now. CT-Head negative for acute pathology Qualifiers: Headache type: unspecified Headache chronicity pattern: unspecified pattern Intractability: not intractable Qualified Code(s): R51 - Headache (3) Bradycardia Status: Acute Assessment and plan: Mild asymptomatic bradycardia. Continue BB for now. (4) Congestive heart failure Current Visit: No Status: Chronic Assessment and plan: Cardiac cath on 11/05 showed LVEF of 55% Well compensated. Continue current medications. Qualifiers: Heart failure type: diastolic Heart failure chronicity: acute Qualified Code(s): I50.31 - Acute diastolic (congestive) heart failure (5) CKD (chronic kidney disease) stage 3, GFR 30-59 ml/min Current Visit: No Status: Chronic Assessment and plan: At baseline. continue to monitor. (6) DVT prophylaxis Current Visit: No Status: Acute Assessment and plan: Continue SCDs and SQ Heparin SNOMED Code(s): 220528729 - Time Spent With Patient Total time spent is greater than 50% in coordination of care (as documented) at patient's floor/unit and/or counseling patient:
[2017-12-07] MEDS: Aspirin Enteric Coated 81 MG Tablet PO SCH (11:40)
[2017-12-07] MEDS: Multivit/Ca/Min/Fe/FA 1 TAB TABLET PO SCH (11:40)
[2017-12-07] MEDS: Furosemide 20 MG TABLET PO SCH (11:41)
--- NOTE | 2017-12-07 14:06 | Cardiology Consult Note ---
<JaylonChrissy J - Last Filed: 12/07/17 14:10> Date of Encounter: 12/07/17 Time of Encounter: 13:00 Assessment and Plan (1) CAD (coronary artery disease) Current Visit: Yes Status: Acute Per cardiology: -Known CAD s/p [facility] 11/05/17 with 80% proximal circ, 80% OM1, 90% mid RCA with NAKUL placed, 80% distal RCA with NAKUL placed. -TTE 10/31/17 with LVEF 50-55%, mild diastolic dsyfunction, mild MR, mild TR, mild AR, no segmental wall motion abnormalities. -Admitted with right shoulder and neck pain, different from previous symptoms. -No acute ECG changes. -Troponin negative x1. -ON asa, plavix. Not on statin due to intolerance, not on beta mariely due to bradycardia. -TTE pending. -Has outpatient cardiology follow up tomorrow. -Symptoms atypical. Different from previous. -Will repeat troponin. -Has known remaining disease, possible staged procedure versus CT sugery consult. -Will discuss and review with . Qualifiers: Coronary Disease-Associated Artery/Lesion type: [place] artery [place] vs. transplanted heart: [place] heart Associated angina: without angina Qualified Code(s): I25.10 - Atherosclerotic heart disease of [place] coronary artery without angina pectoris Discussion w patient/family: The assessment and plan as outlined above was discussed with the patient and/or family members who expressed understanding and agreement. All questions were answered. Thank you for involving us in the care of your patient. Please call with any questions. Discussed and reviewed with . History of Present Illness Consult date: 12/07/17 Requesting physician: Elizabeth Merrill Consult reason: recent PCI Chief complaint: shoulder and neck pain History of present illness: Mr. Matthews is a 87 year old male with a relevant past medical history of CAD s/p recent PCI, diastolic CHF, HTN, GERD. Patient presented to [facility] with complaints of right sided neck and shoulder pain. Patient states he woke up with this pain. Denies aggravating or alleviating factors. Denies chest pain, shortness of breath. Denies increased fatigue. Patient reports symptoms prior to PCI was chest pain. Past Med Surg Social Fam HX - Past Medical History Attestation: Yes The following information was validated with the patient. Source: patient, old records reviewed Medical history: CHF, coronary artery disease, GERD, hyperlipidemia, hypertension, myocardial infarction Psychiatric history: no psych history - Past Surgical History Surgical History: angioplasty/stent, appendectomy - Social History Smoking Status: Former smoker Smokeless Tobacco Status: No Alcohol use: none Drug use: none - Family History Mother Living Status: Medications and Allergies Aspirin [Lo-Dose Aspirin EC] 81 mg PO DAILY 07/13/17 [History] Clopidogrel [Plavix] 75 mg PO DAILY 07/13/17 [History] Multivitamin [Multivitamins] 1 each PO DAILY 07/13/17 [History] Nitroglycerin [Nitrostat] 0.4 mg SL Q5M PRN 07/13/17 [History] Vitamin E (Dl,Tocopheryl Acet) [Vitamin E] 400 unit PO DAILY 07/13/17 [History] Furosemide [Lasix] 20 mg PO DAILY #30 tablet 11/01/17 [Rx] Sertraline [Zoloft] 25 mg PO DAILY 12/07/17 [History] 3 Allergy/AdvReac Type Severity Reaction Status Date / Time Vnukobz-Gma-Zkf Reductase AdvReac Weakness Verified 12/07/17 06:08 Inhibitor [Statins] All Systems Review: The remainder of the systems were reviewed and are negative - Cardiovascular Cardiovascular: as per HPI Physical Examination Vital Signs, Last 4 Hours Temp Pulse Resp BP Pulse Ox 12/07/17 10:05 97.6 F 54 18 164/90 98 General: Conversant, No Apparent Distress HEENT: Atraumatic, Normocephaly, Mucus Membranes Moist Neck: No JVD, Normal carotid pulses Cardiac: Reg Rate and Rhythm, Normal S1 and S2, No Murmur Lungs: Normal Breath Sounds, No Wheeze, Rales, Rhonchi Neuro: Alert and responsive, No focal deficits noted Abdomen: Soft, Non-Tender Skin: No rashes noted on visualized skin Musculoskeletal: No Chest Wall Tenderness Extremities: No Clubbing, No Cyanosis, No Edema, Normal Pulses Results 12/07/17 06:33 12/07/17 06:33 Lab Results Impressions Chest X-Ray 12/07/17 06:11 IMPRESSION: No acute disease. D/ / Robert Garcia MD / Robert Garcia MD Interpreting Provider: Robert Garcia MD Head CT 12/07/17 07:19 IMPRESSION: No acute intracranial abnormality. D/ / Uday Ivey MD / Uday Ivey MD Interpreting Provider: Uday Ivey MD Active Medications Aspirin (Aspirin Ec) 81 mg PO DAILY MARIAM Stop: 06/08/18 09:01 Last Admin: 12/07/17 11:40 Dose: Not Given Clopidogrel Bisulfate (Plavix) 75 mg PO DAILY MARIAM Stop: 06/08/18 09:01 Last Admin: 12/07/17 11:40 Dose: 75 mg Furosemide (Lasix) 20 mg PO DAILY MARIAM Stop: 06/08/18 09:01 Last Admin: 12/07/17 11:41 Dose: 20 mg Heparin Sodium (Porcine) (Heparin) 5,000 unit SQ Q8HCO MARIAM Stop: 06/08/18 14:01 Multivitamins/Calcium (Thera M Plus) 1 tab PO DAILY MARIAM Stop: 06/08/18 09:01 Last Admin: 12/07/17 11:40 Dose: 1 tab Nitroglycerin (Nitroglycerin) 0.4 mg SL Q5M PRN PRN Reason: Chest Pain Stop: 06/08/18 08:24 Sertraline HCl (Zoloft) 25 mg PO DAILY MARIAM Stop: 06/08/18 09:01 Last Admin: 12/07/17 11:40 Dose: 25 mg Vitamin E (Vitamin E) 400 unit PO DAILY MARIAM Stop: 06/08/18 09:01 Last Admin: 12/07/17 11:41 Dose: 400 unit Laboratory Tests 12/07/17 12/07/17 06:33 06:33 Hgb 11.7 L Creatinine 1.71 H Troponin I < 0.03 - Imaging and Cardiology Chest Xray: report reviewed Echo: report reviewed Cardiac cath: report reviewed - EKG Interpretation EKG results cardiology: personally reviewed (ECG with SB, HR 52. PAC noted.) Consult Discharge Plan - Plan Referrals: Tiffanie Ascencio, ZIGZAGGER [Primary Care Provider] - <Shavon Connelly - Last Filed: 12/07/17 15:52> Date of Encounter: 12/07/17 - Attending Attestation I have personally performed a face to face evaluation on this patient. I have reviewed and agree with the care plan. History and Exam by me shows: 87-year-old male with recent PCI to his RCA and known disease in the LAD and circumflex presents with atypical type chest pain with negative cardiac markers and unremarkable EKG. Discussed with patient options regards to his circumflex and LAD in regards to CABG versus high-risk PCI and the patient is leaning towards PCI. Patient also is requesting Dr. Waldron for PCI. Since patient has appointment as an outpatient with Dr. Waldron will discharge patient today if he walks hallways without any exertional dyspnea or chest pain. Known preserved ejection fraction with negative cardiac markers and atypical chest pain. Patient advised to contact our office immediately or present [facility] department if he has further chest pain Assessment and Plan Discussion w patient/family: The assessment and plan as outlined above was discussed with the patient and/or family members who expressed understanding and agreement. All questions were answered. Thank you for involving us in the care of your patient. Please call with any questions. History of Present Illness History of present illness: Mr. Matthews is a 87 year old male All Systems Review: The remainder of the systems were reviewed and are negative Physical Examination Vital Signs, Last 4 Hours Temp Pulse Resp BP Pulse Ox 12/07/17 15:07 97.9 F 55 17 135/68 97 Results 12/07/17 06:33 12/07/17 06:33 Lab Results 12/07/17 12:47 Troponin I < 0.03
[2017-12-07] MEDS: *HR* Heparin 5,000 UNIT/ML VIAL SQ SCH ×2 (14:17→20:27)
[2017-12-08 01:25] LABS: Basophils % 0.7 %; Eosinophils # 0.2 K/mcL (0.0-0.6); Hematocrit 37.8 % (37.5-50.1); Hemoglobin 12.5 g/dL (12.9-16.9); Immature Granulocytes % 0.7 % (0-4); Lymphocytes # 0.8 K/mcL (0.6-4.6); Lymphocytes % 14.6 %; Mean Corpuscular HGB Conc 33.1 g/dL (31.6-35.5); Mean Corpuscular Hemoglobin 31.8 pg (28.0-33.3); Mean Corpuscular Volume 96.2 fL (83.0-100.0); Mean Platelet Volume 8.8 fL (9.4-12.4); Monocytes % 17.3 %; Neutrophils # 3.6 K/mcL (1.6-8.9); Platelet Count 255 K/mcL (140-400); Red Blood Count 3.93 M/mcL (4.19-5.50); Red Cell Distribution Width 12.1 % (11.5-14.5); Segmented Neutrophils % 63.7 %
[2017-12-08 01:31] LABS: Prothrombin Time 11.2 Seconds (9.4-12.1)
[2017-12-08 01:47] LABS: Albumin 4.1 g/dL (3.5-5.7); Bilirubin,Total 0.5 mg/dL (0.3-1.0); Calcium 9.3 mg/dL (8.6-10.3); Globulin 2.1 g/dL (2.4-3.5); Magnesium 2.4 mg/dL (1.6-2.6); Potassium 4.2 mEq/L (3.5-5.1); Total Protein 6.2 g/dL (6.4-8.9)
[2017-12-08] MEDS: *HR* Heparin 5,000 UNIT/ML VIAL SQ SCH (05:36)
[2017-12-08 08:03] VITALS: BP 137/65
[2017-12-08] MEDS: Aspirin Enteric Coated 81 MG Tablet PO SCH (09:27)
[2017-12-08] MEDS: Furosemide 20 MG TABLET PO SCH (09:27)
[2017-12-08] MEDS: Multivit/Ca/Min/Fe/FA 1 TAB TABLET PO SCH (09:27)
--- NOTE | 2017-12-08 10:10 | Discharge Summary ---
- NOTES TO OUTPATIENT PROVIDER Notes to Outpatient Provider: NO changes to medications, discharged with Holter by cardiology, follow up as out-patient Date of Encounter: 12/08/17 Time of Encounter: 10:10 - Discharge Diagnosis (1) CAD (coronary artery disease) Priority: Secondary Status: Chronic Qualifiers: Coronary Disease-Associated Artery/Lesion type: [place] artery [place] vs. transplanted heart: [place] heart Associated angina: without angina Qualified Code(s): I25.10 - Atherosclerotic heart disease of [place] coronary artery without angina pectoris (2) Congestive heart failure Priority: Secondary Status: Chronic Qualifiers: Heart failure type: diastolic Heart failure chronicity: acute Qualified Code(s): I50.31 - Acute diastolic (congestive) heart failure (3) Bradycardia Priority: Primary Status: Acute (4) CKD (chronic kidney disease) stage 3, GFR 30-59 ml/min Priority: Secondary Status: Chronic (5) DVT prophylaxis Priority: Secondary Status: Resolved SNOMED Code(s): 730483351 (6) Headache Priority: Primary Status: Resolved Qualifiers: Headache type: unspecified Headache chronicity pattern: unspecified pattern Intractability: not intractable Qualified Code(s): R51 - Headache Hospital course: Mr. Matthews is a 87 year old male with coronary artery disease was placed on observation for atypical chest pain. Patient was reviewed by cardiology but refuses further intervention unless he is referred by Dr. Waldron. EKG is remarkable, troponin negative, echocardiogram showed preserved ejection fraction with motion abnormalities. Patient was referred to cardiology and evaluated on MRA, no chest pain. He was discharged with holter monitor as recommended by cardiology. Follow-up with primary care physician and cardiology. Discharge discussed with: patient, nurse, case management, java consultant - Time Spent with Patient Total time spent providing and/or coordinating discharge services: Less than 30 minutes - Discharge Medications Home Medications: Aspirin [Lo-Dose Aspirin EC] 81 mg PO DAILY 07/13/17 [History] Clopidogrel [Plavix] 75 mg PO DAILY 07/13/17 [History] Multivitamin [Multivitamins] 1 each PO DAILY 07/13/17 [History] Nitroglycerin [Nitrostat] 0.4 mg SL Q5M PRN 07/13/17 [History] Vitamin E (Dl,Tocopheryl Acet) [Vitamin E] 400 unit PO DAILY 07/13/17 [History] Furosemide [Lasix] 20 mg PO DAILY #30 tablet 11/01/17 [Rx] Sertraline [Zoloft] 25 mg PO DAILY 12/07/17 [History] Allergies/Adverse Reactions: 3 Allergy/AdvReac Type Severity Reaction Status Date / Time Lvnimyx-Fzc-Siq Reductase AdvReac Weakness Verified 12/07/17 06:08 Inhibitor [Statins] Date of admission: 12/07/17 08:22 Primary care physician: Tiffanie Ascencio CNP Consults: 12/07/17 10:17 Consult to Pastoral Services [CONS] Routine Comment: 12/08/17 08:54 Consult to Nurse Navigator [CONS] Routine Comment: chf education Discharging clinician: Ilan Hubbard Anticipated date of discharge: 12/08/17 - Constitutional Vitals: Temp Pulse Resp BP Pulse Ox 97.7 F 61 16 137/65 96 12/08/17 08:02 12/08/17 08:02 12/08/17 08:02 12/08/17 08:02 12/08/17 08:02 General appearance: Present: A&O X 3, pleasant, no acute distress - Head Head exam: Present: atraumatic, normocephalic - Eye Eye exam: Present: PERRL, conjuntiva pink, sclera anicteric Pupils: Present: PERRL - Neck Neck exam general surgery: Present: supple, trachea midline. Absent: lymphadenopathy - Respiratory Respiratory exam: Present: CTAB. Absent: accessory muscle use, rales, rhonchi, wheezes - Cardiovascular Cardiovascular exam: Present: RRR, +S1, +S2. Absent: diastolic murmur, gallop, rubs, systolic murmur - GI/Abdominal GI/Abdominal exam: Present: normal bowel sounds, soft, no peritoneal signs. Absent: distended, tenderness - Extremities Exam Extremities exam: Present: warm, radial pulses palpable and symmetrical. Absent : calf tenderness, cyanotic, pedal edema - Neurological Exam Neurological exam: Present: alert, CN II-XII intact, oriented X3, no focal deficits. Absent: pronater drift, facial droop, speech deficit - Skin Skin exam: Present: dry, intact - Patient Status Disposition: Home, Self-Care Condition: Good Functional capacity at discharge: independent ambulation Overall status at discharge: patient is back to baseline - Discharge Instructions Instructions: Chest Pain (DC), Holter Monitoring (DC), Holter Monitoring (GEN) Follow Up With: Tiffanie Ascencio CNP [Primary Care Provider] - (PLEASE MAKE APPOINTMENT WITH PRIMARY CARE DOCTOR ) - Diet and Activity Activity: resume usual activities as tolerated Diet: low salt diet
--- NOTE | 2017-12-08 13:38 | Event Note ---
Date of Encounter: 12/08/17 Time of Encounter: 13:35 - Cardiology Event Note at bedside. Discussed at length with patient and daughter at bedside regarding atypical pain, LHC, and TTE results. Patient has known bradycardia and has been unable to tolerate beta blockers. Per , recommend holter at discharge. Pateint will follow up with . Follow up set.
== END 2017-12-08 14:23 | disposition home or self-care (01) ==
LOC: EMEROO 06:05 → 3ANU 06:05
PROVIDERS: ADMIT Internal Medicine; ATTEND Internal Medicine